=== PATIENT | female | born 1995 | race Caucasian/White ===

== ENCOUNTER 2024-08-12 08:47 | Outpatient (CLI) | payer OTHER, SELFPAY ==
--- NOTE | 2024-08-12 09:15 | CRLHL7_ITS ---
For Patients: As a result of the Cures Act, medical imaging exams and procedure reports are released immediately into your electronic medical record. You may view this report before your referring provider. If you have questions, please contact your health care provider. OB ULTRASOUND INDICATION: Dating and viability (IVF). TECHNIQUE: Real time grayscale imaging of the fetus was performed. Transabdominal. CHINO by IVF: 03/09/2025. GA: 10 w, 1 d. Previous US: No. CRL: 3.5 cm. 10 w 3 d. CHINO: 03/07/2025. FHR: 176 BPM. Gestational sac: 3.4 cm. Appears within normal limits. Yolk sac: 4.9 mm. Appears within normal limits. Posterior placenta forming. Right ovary: 2.0 x 0.9 x 1.7 cm. Left ovary: N/V. IMPRESSION: Single living intrauterine measures 10 weeks 3 days with sonographic due date 03/07/2025. Stuart Abraham M.D. Diagnostic Radiologist [email or web address] MARCELLO/bhanu drummond/Dictated by: Stuart Abraham MD @ 08/12/2024 12:57:00 PM (Electronically Signed)
== END 2024-08-12 08:48 | disposition home or self-care (01) ==
LOC: US 08:49
PROVIDERS: Visit Provider Advanced Practice Midwife
DX: O09.811 Supervision of pregnancy resulting from assisted reproductive technology, first trimester (principal); Z3A.10 10 weeks gestation of pregnancy
CPT/HCPCS: 76801

== ENCOUNTER 2024-08-23 22:38 | Emergency (ER) | payer OTHER, SELFPAY ==
--- OUTSIDE RECORDS SUMMARY | 2024-08-23 22:40 | XMS_ITS | Clinical Summary ---
Author Organization [facility] Address [address] [place] [address] Care Team Providers Care Hand Picker Name Role Phone Billie Olivier PAWAN Primary Care Provider Allergies No known active allergies Medications ALBUTEROL INHL Inhale by mouth. Active benzonatate (TESSALON) 200 mg capsuleIndicati ons:Shortness of breath,Chest pain, unspecified type Take 1 Capsule (200 mg) by mouth 3 times daily if needed for Cough. 30 Capsule 2 Active rizatriptan (MAXALT) 10 mg tabletIndicatio ns:Migraine syndrome Take 1 tab at onset of migraine, may repeat X1. Give at minimum 2hrs apart. Max Dose: 30mg per 24hrs. 12 Tablet 3 5 Active sertraline 25 mg tabletIndicatio ns:Depression, recurrent,Anxie ty TAKE ONE TABLET BY MOUTH EVERY MORNING 90 Tablet 5 Active sertraline (ZOLOFT) 25 mg tabletIndicatio ns:Depression, recurrent,Anxie ty Take 1 Tablet (25 mg) by mouth once daily in the morning. 90 Tablet 5 025 Discontinued Active Problems Problem Noted Date Diagnosed Date Migraine syndrome 04/29/2024 Migraine without aura 03/09/2022 Overview (03/09/2022): Created by Conversion Replacement Utility updated for latest IMO load BROOKE (generalized anxiety disorder) 03/11/2017 Unspecified episodic mood disorder 01/06/2008 Attention deficit disorder with hyperactivity(31 4.01) 01/06/2008 Oppositional defiant disorder of childhood or ad olescence 01/06/2008 Anxiety state, unspecified 01/06/2008 Encounters Date Type Department Care Team Description 07/29/[address] [phone] Billie Olivier NP Refill Request (Sertraline) from Last 3 Months Immunizations Immunization Administration Dates Next Due DTaP 10/06/2001,04/24/1997,02/14/1997 ,1996 Dtap Unspecified Formulation 10/06/2001,04/24/18 98,02/14/1997,1996 HIB PRP-OMP (PedvaxHIB) 04/24/1997,02/14/1997, Hepatitis A, Unspecified 07/22/2007,12/04/2006,0 04/24/1997 Hepatitis B (Adult) 04/24/1997,1996 Human Papilloma Virus Vaccine 12/18/2011, 012,07/27/2008 Inactivated Polio Vaccine 06/10/2012,10/06/2001, 02/14/1997,1996 MMR 10/06/2001,10/31/1997 Meningococcal Vaccine (Menactra) 01/08/2015,07/06 Td (Age >=7 Years) 10/27/2018 Tdap 08/24/2020,10/27/2018,07/27/2008 Varicella Vaccine 10/27/2018,12/04/2006 Family History Medical History Relation Name Comments Psychiatric illness Mother depressi on-on Zoloft Relation Name Status Comments Brother 1 Alive m. half Brother 2 Alive p. half Father Alive Mother Alive Sister Alive p. half Social History Tobacco Use Types Packs/Day Years Used Date Smoking Tobacco: Never Alcohol Use Standard Drinks/Week Comments Yes 0 (1 standard drink = 0.6 oz pur e alcohol) Rare PHQ-2 Answer Date Recorded PHQ-2 TOTAL SCORE 2 05/13/2024 Comments No Sex and Gender Information Value Date Recorded Sex Assigned at Not on file Legal Sex Female 6:26 PM TECHNICAL AID Gender Identity Not on file Sexual Orientation Not on file Obstetrics History Last Filed Vital Signs Vital Sign Reading Time Taken Comments Blood Pressure 108/78 04/29/2024 1:10 PM TECHNICAL AID Pulse 64 04/29/2024 1:10 PM TECHNICAL AID Temperature 36.7 C (98 F) 10/16/2022 1:14 PM CDT Respiratory Rate 16 10/16/2022 1:14 PM CDT Oxygen Saturation 98% 10/16/2022 1:14 PM CDT Inhaled Oxygen Concentration - - Weight 89 kg (196 lb 1.6 oz) 04/29/2024 1:10 PM TECHNICAL AID Height 166 cm (5' 5.35) 04/29/2024 1:10 PM TECHNICAL AID Body Mass Index 32.28 04/29/2024 1:10 PM TECHNICAL AID Plan of Treatment Health Maintenance Due Date Last Done Comments Hepatitis B series for 19+ (3 of 3 - 3-dose series) 06/19/1997 04/24/1997, 1996 HIV for age 15-65 10/11/2011 Hepatitis C screening for age 18-79 2014 Pap test for age 21-65 2017 COVID-19 vaccine series ( season) 2023 05/02/2021, 05/02/2021, 09/07/2020, Additional history exists Influenza Vaccine (Season Ended) 2024 BMI (ht and wt on same day) for age 18+ 04/29/2025 04/29/2024 Depression screening for age 12+ 05/13/2025 05/13/2024 Tetanus booster 08/24/2030 08/24/2020, 10/05, 10/27/2018, Additional history exists Tdap Completed 08/24/2020, 10/05, 07/27/2008 Pneumococcal series for age 6-49 Aged Out No longer eligible based on patient's age to complete this topic Insurance [place] [id number] [place] [id number] CLINIC ID #[id number] A/P [address] [address] [place] [address] Care Teams Hand Picker Relationship Specialty Start Date End Date Billie Olivier NP [address] [place] [id number] PCP - General Nurse Practitioner - Family 04/29/24
[2024-08-23 22:42] VITALS: BP 132/81; PULSE 78; RESP 18; TEMP 37.2; O2SAT 98; BMI 31.1
--- NOTE | 2024-08-23 23:07 | ED.GENADULT ---
HPI - General Adult General Chief complaint: Nausea/Vomiting Stated complaint: 12 Weeks , vomiting x 24 hours Time Seen by Provider: 08/23/24 23:01 History of Present Illness HPI narrative: pt here with nausea and vomiting, unable to tolerate po x 24 hours, has had ongoing issues with this and has zofran at home, CHINO 03/09/2025, was prescribed reglan but has not been notified it is ready at pharmacy 28-year-old woman presenting to the emergency department with concern nausea and vomiting. No hematemesis noted. No fever. This has been present through her now at 11-12 weeks. She says Zofran is not working. Was prescribed Reglan but does not have this yet. She is not having any abdominal pain. No unusual discharge. Still with nausea presenting here in the emergency department. Has not received IV treatment for this yet but since it had been 24 hours now where she was really unable to take anything significant in, thought should present to the emergency department last urine output was about 3 hours ago and concentrated. Related Data Home Medications ?Medication ?Instructions ?Recorded ?Confirmed docosahexaenoic acid 200 mg mg PO 08/13/23 08/12/24 capsule ( DHA) cetirizine 10 mg capsule (Zyrtec) 10 mg PO QDAY PRN 08/12/24 08/23/24 ondansetron HCl 4 mg tablet 4 mg PO Q6H 08/12/24 08/23/24 sertraline 25 mg tablet 25 mg PO QDAY 08/12/24 08/23/24 Held on 08/23/24. Instructions: stopped with ondansetron 4 mg disintegrating 4 mg PO Q4H PRN nausea 08/23/24 08/23/24 tablet Previous Rx's ?Medication ?Instructions ?Recorded albuterol sulfate 90 mcg/actuation 2 inh inhalation Q4-6H PRN 08/12/24 aerosol inhaler shortness of breath or wheezing #6.7 grams ondansetron HCl 4 mg tablet 4 mg PO Q8H #60 tabs 08/12/24 pyridoxine (vitamin B6) 25 mg 25 mg PO QID 3 months #180 tabs 08/12/24 tablet metoclopramide HCl 10 mg tablet 10 mg PO Q6H PRN nausea and 08/23/24 vomiting #120 tabs Allergies Allergy/AdvReac Type Severity Reaction Status Date / Time No Known Drug Allergies Allergy Verified 08/12/24 10:34 Review of Systems Status of ROS: Reports: 6 or more systems reviewed and unremarkable except as noted in History and below [facility] Medical History 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 - Other and unspecified doubling of uterus (ICD-10) Surgical History Status post hysteroscopic resection of uterine septum ?Z98.891 - History of uterine scar from previous surgery (ICD-10) History of tonsillectomy and adenoidectomy ?Z90.89 - Acquired absence of other organs (ICD-10) History of hysteroscopy ?Z98.890 - Other specified postprocedural states (ICD-10) Family History Maternal Grandfather Prostate cancer Grandmother Diabetes Brother Congenital spinal malformation Mother Addiction Social History Narrative: SOCIAL Education: some college 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, 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 hire 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 Lives with: partner and her brother Pets: cat and dog Abuse: Denies past Special Diet: Denies Ok with a blood transfusion: yes Culture or religion beliefs: denies RISK FACTORS Exercise Times/wk: walks occasionally Depression/Anxiety: both, hx therapy but not currently d/t cost, on Sertraline BROOKE: 5 PHQ 9: 4 Seat Belt Use: Routinely Smoking: Denies present, stopped vaping with transfer in June, only occasional use before then Alcohol/day: Denies while Caffeine: 1-2 pops a day Drug Use: Denies present THC in the past, last time 6+ months ago Chicken Pox: unsure if immunized MRSA: Denies What is your current living situation?: I presently have a place to live Problems where you live: no known problems In the past 12 months, utilities in danger of being shut off: no In past 12 months, lack of transportation kept you from medical appts, meetings, work, or getting things needed for daily living: no In the past 12 mos, have been you worried that your food would run out before you had money to buy more?: never true In the past 12 mos, the food you bought just didn't last and you didn't have money to buy more?: never true Smoking Status: Former smoker Do you use any of these nicotine containing products: Vaping Products How often do you have a drink containing alcohol: never AUDIT-C Alcohol total score: 0 Non-prescribed substance use: denies use How often does anyone, including family, friends and others, physically hurt you: never How often does anyone, including family, friends and others, insult or talk down to you: never How often does anyone, including family, friends and others, threaten you with harm: never How often does anyone, including family, friends and others, scream or curse at you: never Exam Narrative: Exam Narrative: Pleasant. Of good energy. Breathing easily. Lungs appear to be clear. Heart in regular rate and rhythm. Abdomen is soft and nontender. Extremities are well perfused without edema. Oropharynx is a little less than moist. Const: Vital Signs, click to edit/add: Vital Signs - 24 hr 08/23/24 22:42 Temperature 98.9 F Pulse Rate [Right Pulse Oximeter] 78 Respiratory Rate 18 Blood Pressure [Ri ght Upper Arm] 132/81 Pulse Oximetry 98 Oxygen Delivery Me thod Room Air Documenting provider has reviewed patient's vital signs: yes Course Vital Signs Vital signs: Initial Vital Signs Temperature 98.9 F 08/23/24 22:42 Temperature Source Temporal Artery Scan 08/23/24 22:42 Pulse Rate 78 08/23/24 22:42 Respiratory Rate 18 08/23/24 22:42 Blood Pressure 132/81 08/23/24 22:42 Blood Pressure Mean 98 08/23/24 22:42 Blood Pressure Position Sitting 08/23/24 22:42 Pulse Oximetry 98 08/23/24 22:42 Oxygen Delivery Method Room Air 08/23/24 22:42 Vital Signs Temperature 98.9 F 08/23/24 22:42 Pulse Rate 78 08/23/24 22:42 Respiratory Rate 18 08/23/24 22:42 Blood Pressure 132/81 08/23/24 22:42 Pulse Oximetry 98 08/23/24 22:42 Oxygen Delivery Method Room Air 08/23/24 22:42 Temperature 98.9 F 08/23/24 22:42 Pulse Rate 78 08/23/24 22:42 Respiratory Rate 18 08/23/24 22:42 Blood Pressure 132/81 08/23/24 22:42 Pulse Oximetry 98 08/23/24 22:42 Oxygen Delivery Method Room Air 08/23/24 22:42 Medications Administered Medications: Generic Name Dose Route Start Last Admin Trade Name Freq PRN Reason Stop Dose Admin Sodium Chloride 500 mls @ 1,000 mls/hr 08/24/24 00:42 08/24/24 00:59 0.9 % Sodium Chloride 500 Ml IV 08/24/24 01:11 1,000 mls/hr .Q30M ONE Administration Discontinued Medications Generic Name Dose Route Start Last Admin Trade Name Freq PRN Reason Stop Dose Admin Sodium Chloride 1,000 mls @ 1,000 mls/hr 08/23/24 23:14 08/24/24 00:37 0.9 % Sodium Chloride 1000 Ml IV 08/24/24 00:13 Infused .Q1H ONE Infusion Metoclopramide HCl 10 mg/ 102 mls @ 306 mls/hr 08/23/24 23:14 08/24/24 00:08 Sodium Chloride IVPB 08/23/24 23:15 Infused ONCE ONE Infusion Medical Decision Making MDM Narrative Medical decision making narrative: No red flags here. No abdominal pain. No bleeding. Would treat as vomiting in . Does not meet the definition of hyperemesis at this point. Initiating IV hydration with normal saline. Reglan piggyback. Urinalysis looks concentrated and possibly a contaminant. Would wait to treat pending culture results as otherwise asymptomatic. Is improved. I did take crackers and diluted juice. Able to tolerate this along with some ice chips. Further giving an orange. Will give another 500 mL of normal saline and I would anticipate discharge See patient discharge plan for further discussion Focus on hydration. Light diet over the next 24-36 hours. Diluted juices, soup broth, toast, rice, crackers. Hopefully the Reglan will be more effective for you than the Zofran has been. Would still consider trying Zofran. Could also take 25 mg of doxylamine twice a day (unfortunately is typically sedating) and 50 mg of vitamin B6 (pyridoxine) 3 times daily for control of nausea. Perhaps you have tried this already. Urine culture will be pending here. I think this will be negative; more of a contaminant perhaps. We will call you though if appears to require action. Medical Records Medical records reviewed: Yes I reviewed the patient's medical records Lab Data Lab results reviewed: Yes I reviewed the patient's lab results Labs: Lab Results 08/24/24 Range/Units 00:00 Urine Color Yellow (Yellow) Urine Appearance Cloudy A (Clear) Urine pH 7.5 (5.0-8.5) Ur Specific [place] 1.020 (1.000-1.030) Urine Protein 1+ A (Negative) Urine Glucose (UA) Negative (Negative) Urine Ketones 2+ A (Negative) Urine Blood Negative (Negative) Urine Nitrite Negative (Negative) Urine Bilirubin 1+ A (Negative) Urine Urobilinogen 4.0 A (0.2-1.0) Ur Leukocyte Esterase 2+ A (Negative) Urine RBC 2-5 A (0-2) Urine WBC 10-25 A (0-5) Ur Squamous Epith Cells Moderate A (None-Few) Amorphous Sediment Moderate A (None) Urine Bacteria Moderate A (None) Urine Mucus Few A (None) Discharge Plan Discharge Clinical Impression: Vomiting during Patient Disposition: Home w/ Parent or Adult Condition: Improved Additional Instructions: Focus on hydration. Light diet over the next 24-36 hours. Diluted juices, soup broth, toast, rice, crackers. Hopefully the Reglan will be more effective for you than the Zofran has been. Would still consider trying Zofran. Could also take 25 mg of doxylamine twice a day (unfortunately is typically sedating) and 50 mg of vitamin B6 (pyridoxine) 3 times daily for control of nausea. Perhaps you have tried this already. Urine culture will be pending here. I think this will be negative; more of a contaminant perhaps. We will call you though if appears to require action. Prescriptions: No Action DHA 200 mg capsule PO sertraline 25 mg tablet 25 mg PO QDAY ondansetron HCl 4 mg tablet 4 mg PO Q6H Zyrtec 10 mg capsule 10 mg PO QDAY PRN pyridoxine (vitamin B6) 25 mg tablet 25 mg PO QID 90 Days Qty: 180 1RF ondansetron HCl 4 mg tablet 4 mg PO Q8H Qty: 60 0RF albuterol sulfate 90 mcg/actuation HFA aerosol inhaler 2 inh inhalation Q4-6H PRN (Reason: shortness of breath or wheezing) Qty: 6.7 0RF ondansetron 4 mg tablet,disintegrating 4 mg PO Q4H PRN (Reason: nausea) metoclopramide HCl 10 mg tablet 10 mg PO Q6H PRN (Reason: nausea and vomiting) Qty: 120 3RF Follow Up/Referrals: Provider,Not a Local [Primary Care Provider, Family Practice] Stand Alone Forms: [employer] Info Instructions
[2024-08-23] MEDS: 0.9 % SODIUM CHLORIDE 1000 ml 1,000 ML IV (23:27)
--- OUTSIDE RECORDS SUMMARY | 2024-08-23 23:30 | XMS_ITS | Clinical Summary ---
Author Organization [facility] [employer] Address [address] [place] [id number] Care Team Providers Care Retail Sales Representative Name Role Phone Billie Olivier PAWAN Primary [...] Type Department Care Team Description 07/29/[address] [phone] Billie Olivier NP Refill Request (Sertraline) from [...] on file Legal Sex Female 6:26 PM EXPERIENCE DESIGNER Gender Identity Not on file Sexual Orientation Not on file Obstetrics History Last Filed Vital Signs Vital Sign Reading Time Taken Comments Blood Pressure 108/78 04/29/2024 1:10 PM EXPERIENCE DESIGNER Pulse 64 04/29/2024 1:10 PM EXPERIENCE DESIGNER Temperature 36.7 C (98 F) 10/16/2022 1:14 PM CDT Respiratory Rate 16 10/16/2022 1:14 PM CDT Oxygen Saturation 98% 10/16/2022 1:14 PM CDT Inhaled Oxygen Concentration - - Weight 89 kg (196 lb 1.6 oz) 04/29/2024 1:10 PM EXPERIENCE DESIGNER Height 166 cm (5' 5.35) 04/29/2024 1:10 PM EXPERIENCE DESIGNER Body Mass Index 32.28 04/29/2024 1:10 PM EXPERIENCE DESIGNER Plan of Treatment Health Maintenance Due Date [...] HP [place] [id number] [place] [id number] CLINIC ID #[id number] A/P [address] [address] [place] [address] Care Teams Retail Sales Representative Relationship Specialty Start Date End Date Billie Olivier NP [address] [place] [id number] PCP - General Nurse Practitioner - Family 04/29/24
[2024-08-23] MEDS: METOCLOPRAMIDE HCL 10 MG in 0.9 % SODIUM CHLORIDE 100 ml 100 ML 306 MG IVPB (23:47)
[2024-08-24 00:10] LABS: Appearance Urine Cloudy (Clear); Bilirubin Urine 1+ (Negative); Blood Urine Negative (Negative); Color Urine Yellow (Yellow); Glucose Urine Negative (Negative); Ketones Urine 2+ (Negative); Leukocyte Esterase Urine 2+ (Negative); Nitrite Urine Negative (Negative); Protein Urine 1+ (Negative); pH Urine 7.5 (5.0-8.5)
[2024-08-24 00:23] LABS: Amorphous Sediment Urine Moderate; Bacteria Urine Moderate; Mucus Urine Few; Squamous Epithelial Cell Urine Moderate (None-Few)
[2024-08-24] MEDS: 0.9 % SODIUM CHLORIDE 500 ML 500 ML 1000 ML IV (00:59)
== END 2024-08-24 01:53 | disposition home or self-care (01) ==
PROVIDERS: Emergency Provider Family Medicine
DX: O21.9 Vomiting of pregnancy, unspecified (principal); Z3A.12 12 weeks gestation of pregnancy
CPT/HCPCS: 81001; 87086; 96365; 99284; J2765; J7030

== ENCOUNTER 2024-09-02 12:03 | Outpatient (CLI) | payer OTHER, SELFPAY | END 2024-09-02 12:04 | disposition home or self-care (01) | LOC: NFLDREF 09-07 00:22 | PROVIDERS: Visit Provider Advanced Practice Midwife | DX: Z34.01 Encounter for supervision of normal first pregnancy, first trimester (principal); Z67.40 Type O blood, Rh positive | CPT/HCPCS: 83020; 83021; 85660; 86592; 86703; 86704; 86706; 86762; 86787; 86803; 86850; 86900; 86901; 87340 ==

== ENCOUNTER 2024-09-15 15:16 | Emergency (ER) | payer OTHER, SELFPAY ==
--- OUTSIDE RECORDS SUMMARY | 2024-09-15 15:18 | XMS_ITS | Clinical Summary ---
Author Organization [facility] Address [address] [place] [id number] Care Team Providers Care Insurance Case Manager Name Role Phone Billie Olivier PAWAN Primary Care Provider Allergies No known active allergies Medications ALBUTEROL INHL Inhale by mouth. Active benzonatate (TESSALON) 200 mg capsuleIndicatio ns:Shortness of breath,Chest pain, unspecified type Take 1 Capsule (200 mg) by mouth 3 times daily if needed for Cough. 30 Capsule 03/09/2022 Active rizatriptan (MAXALT) 10 mg tabletIndication s:Migraine syndrome Take 1 tab at onset of migraine, may repeat X1. Give at minimum 2hrs apart. Max Dose: 30mg per 24hrs. 12 Tablet 3 04/29/2024 Active sertraline 25 mg tabletIndication s:Depression, recurrent,Anxiet y TAKE ONE TABLET BY MOUTH EVERY MORNING 90 Tablet 07/30/2024 Active Active Problems Problem Noted Date Diagnosed Date [...] Type Department Care Team Description 07/29/2024 [address]ill [place] [id number] [facility] [place] [address] Billie Olivier NP Refill Request (Sertraline) from [...] on file Legal Sex Female 6:26 PM LEARNING TECHNOLOGIES SPECIALIST Gender Identity Not on file Sexual Orientation Not on file Obstetrics History Last Filed Vital Signs Vital Sign Reading Time Taken Comments Blood Pressure 108/78 04/29/2024 1:10 PM LEARNING TECHNOLOGIES SPECIALIST Pulse 64 04/29/2024 1:10 PM LEARNING TECHNOLOGIES SPECIALIST Temperature 36.7 C (98 F) 10/16/2022 1:14 PM CDT Respiratory Rate 16 10/16/2022 1:14 PM CDT Oxygen Saturation 98% 10/16/2022 1:14 PM CDT Inhaled Oxygen Concentration - - Weight 89 kg (196 lb 1.6 oz) 04/29/2024 1:10 PM LEARNING TECHNOLOGIES SPECIALIST Height 166 cm (5' 5.35) 04/29/2024 1:10 PM LEARNING TECHNOLOGIES SPECIALIST Body Mass Index 32.28 04/29/2024 1:10 PM LEARNING TECHNOLOGIES SPECIALIST Plan of Treatment Health Maintenance Due Date [...] 04/29/2024 Depression screening for age 12+ 05/13/2025 05/13/2024, 05/05/2024, 04/29/2024 Tetanus booster 08/24/2030 08/24/2020, 10/05, 10/27/2018, Additional history exists Tdap Completed 08/24/2020, 10/05, 07/27/2008 Pneumococcal series for age 6-49 Aged Out No longer eligible based on patient's age to complete this topic Insurance [address] [id number] [place] [address] [facility] [place] [address] HP CLINIC ID #[id number] A/P [address] [address] [place] [address] Care Teams Insurance Case Manager Relationship Specialty Start Date End Date Billie Olivier NP [address] [place] [id number] PCP - General Nurse Practitioner - Family 04/29/24
[2024-09-15 15:34] VITALS: BP 136/86; PULSE 88; RESP 16; TEMP 36.1; O2SAT 98; BMI 31.0
--- NOTE | 2024-09-15 16:18 | ED.SOB ---
HPI - SOB/Dyspnea General Time Seen by Provider: 16:18 Date Seen: 09/15/24 Chief Complaint: Shortness of Breath/Dyspnea Stated Complaint: SOB, 15 wks Time Seen by Provider: 09/15/24 15:19 Source: patient and RN notes reviewed Mode of arrival: ambulatory Limitations: no limitations History of Present Illness HPI Narrative: This 28-year-old female is coming into the ER with episodes of shortness of breath. She notes that she has been having shortness of breath with activities just like full in close. She suddenly felt today that she could not catch her breath and that her heart was racing. She states she sat down in the feeling went away pretty quickly but soon as she stood up she was feeling that way again. This is happened to her before today. She does have asthma but has not been outside in the poor air quality. She has not been sick with anything. She notes no swelling in her legs. She notes no vaginal leakage or bleeding, no cramping. At the time of triage patient was having no shortness of breath, no palpitations, no pain complaints. In review of her records, this is result from in-vitro fertilization. She did have some mild hyperemesis gravidarum initially. She is noted to have the underlying asthma. Her RPR is nonreactive, negative hepatitis B surface antigen and antibody, negative hepatitis-B core, negative hepatitis C antibody, negative HIV. Positive antibodies to rubella and VZV. Related Data Home Medications ?Medication ?Instructions ?Recorded ?Confirmed cetirizine 10 mg capsule (Zyrtec) 10 mg PO QDAY PRN 08/12/24 09/15/24 ondansetron 4 mg disintegrating 4 mg PO Q4H PRN nausea 08/23/24 09/15/24 tablet metoclopramide HCl 10 mg tablet 10 mg PO Q6H PRN nausea/vomiting 09/15/24 09/15/24 sertraline 25 mg tablet 25 mg PO QAM 09/15/24 09/15/24 Previous Rx's ?Medication ?Instructions ?Recorded albuterol sulfate 90 mcg/actuation 2 inh inhalation Q4-6H PRN 08/12/24 aerosol inhaler shortness of breath or wheezing #6.7 grams ondansetron HCl 4 mg tablet 4 mg PO Q8H #60 tabs 05/09/25 ondansetron HCl 4 mg tablet 4 mg PO Q6H #30 tabs 08/26/24 Allergies Allergy/AdvReac Type Severity Reaction Status Date / Time No Known Drug Allergies Allergy Verified 09/15/24 15:33 Review of Systems Status of ROS: Reports: 6 or more systems reviewed and unremarkable except as noted in History and below [facility] Medical History 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 - Other and unspecified doubling of uterus (ICD-10) Surgical History Status post hysteroscopic resection of uterine septum ?Z98.891 - History of uterine scar from previous surgery (ICD-10) History of tonsillectomy and adenoidectomy ?Z90.89 - Acquired absence of other organs (ICD-10) History of hysteroscopy ?Z98.890 - Other specified postprocedural states (ICD-10) Family History Maternal Grandfather Prostate cancer Grandmother Diabetes Brother Congenital spinal malformation Mother Addiction Social History Narrative: SOCIAL Education: some college 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, plans to start at half-way when they hire 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 Lives with: partner and her brother Pets: cat and dog Abuse: Denies past Special Diet: Denies Ok with a blood transfusion: yes Culture or advent beliefs: denies RISK FACTORS Exercise Times/wk: walks occasionally Depression/Anxiety: both, hx therapy but not currently d/t cost, on Sertraline BROOKE: 5 PHQ 9: 4 Seat Belt Use: Routinely Smoking: Denies present, stopped vaping with transfer in June, only occasional use before then Alcohol/day: Denies while Caffeine: 1-2 pops a day Drug Use: Denies present THC in the past, last time 6+ months ago Chicken Pox: unsure if immunized MRSA: Denies What is your current living situation?: I presently have a place to live Problems where you live: no known problems In the past 12 months, utilities in danger of being shut off: no In past 12 months, lack of transportation kept you from medical appts, meetings, work, or getting things needed for daily living: no In the past 12 mos, have been you worried that your food would run out before you had money to buy more?: never true In the past 12 mos, the food you bought just didn't last and you didn't have money to buy more?: never true Smoking Status: Former smoker Do you use any of these nicotine containing products: Vaping Products How often do you have a drink containing alcohol: never AUDIT-C Alcohol total score: 0 Non-prescribed substance use: denies use How often does anyone, including family, friends and others, physically hurt you: never How often does anyone, including family, friends and others, insult or talk down to you: never How often does anyone, including family, friends and others, threaten you with harm: never How often does anyone, including family, friends and others, scream or curse at you: never Exam Const: Vital Signs, click to edit/add: Vital Signs - 24 hr 09/15/24 15:34 09/15/24 16:25 09/15/24 17:42 Temperature 97.0 F L 97.1 F L Pulse Rate [Pulse Oximeter] 88 84 Respiratory Rate 16 18 Blood Pressure [Ri ght Upper Arm] 136/86 130/78 Pulse Oximetry 98 97 100 Oxygen Delivery Me thod Room Air Room Air Pancho is a 28-year-old female that is alert, interactive, no apparent distress. It will speak in complete sentences. Pupils equal round, sclera clear, conjugate gaze. Symmetrical facial function. Speech is normal, no hoarseness. Neck supple, no jugular venous distension. Lungs are clear, good air entry, no wheezing or crackles, tachypnea, no accessory muscle use, no prolonged expiratory phase. CV regular rate and rhythm, no murmur, normal S1-S2, no S3-S4. She has no lower extremity edema. Nursing staff did ambulate her with pulse oximetry, pulse was 110, O2 sats were 91-94% and patient was asymptomatic. I would consider this normal in a patient at 15 weeks. Documenting provider has reviewed patient's vital signs: yes Course Course ED Course: Will obtain EKG, monitor patient here and get appropriate labs. Will discuss PE imaging with CT further with the certified scrub tech, make sure that they are in agreement with imaging. Consider pulmonary emboli, atypical presentation of lung infection, possible cardiac issues (early to have cardiomyopathy). She certainly seems quite stable on initial presentation. Reevaluation(s) Time of Reevaluation #1: 18:23 Reevaluation #1: [place] done patient done, heart rate 157-160. Abdomen is soft, nontender. Reviewed plan for ZIO patch placement. Still awaiting chest CT. If chest CT does come back normal, will discharge to home for further outpatient workup and follow-up. She has been stable here without any hemodynamic changes. Obviously if there is abnormalities on the chest CT, will intervene accordingly. Consultations Consultation #1: Have reviewed case with OB on-call Dr. Martinez, she agrees with proceeding chest CT PE protocol, probable discharge with ZIO patch. Patient was updated regarding this conversation, agrees to chest CT PE protocol. Time: 16:55 Vital Signs Vital signs: Initial Vital Signs Temperature 97.0 F L 09/15/24 15:34 Temperature Source Temporal Artery Scan 09/15/24 15:34 Pulse Rate 88 09/15/24 15:34 Respiratory Rate 16 09/15/24 15:34 Blood Pressure 136/86 09/15/24 15:34 Blood Pressure Mean 102 09/15/24 15:34 Pulse Oximetry 98 09/15/24 15:34 Oxygen Delivery Method Room Air 09/15/24 15:34 Vital Signs Temperature 97.0 F L 09/15/24 15:34 Pulse Rate 88 09/15/24 15:34 Respiratory Rate 16 09/15/24 15:34 Blood Pressure 136/86 09/15/24 15:34 Pulse Oximetry 98 09/15/24 15:34 Oxygen Delivery Method Room Air 09/15/24 15:34 Temperature 97.1 F L 09/15/24 17:42 Pulse Rate 84 09/15/24 17:42 Respiratory Rate 18 09/15/24 17:42 Blood Pressure 130/78 09/15/24 17:42 Pulse Oximetry 100 09/15/24 17:42 Oxygen Delivery Method Room Air 09/15/24 17:42 MDM - SOB/Dyspnea Lab Data Attestation: I reviewed the patient's lab results. Labs: Lab Results 09/15/24 Range/Units 16:48 WBC 12.04 H (4.50-11.00) K/uL RBC 4.12 (4.00-5.20) m/uL Hgb 12.2 (12.0-16.0) gm/dL Hct 36.3 (33.0-51.0) % MCV 88 (80-100) fL MCH 30 (26-34) pg MCHC 34 (32-36) gm/dL RDW Coeff of Rolando 12.9 (11.5-15.5) % Plt Count 337 (140-440) K/uL Neut % (Auto) 76.9 H (42.0-72.0) % Lymph % (Auto) 15.4 L (20-44) % [place] % (Auto) 5.9 (0.0-11.0) % Eos % (Auto) 0.3 (0.0-7.0) % Baso % (Auto) 0.2 (0.0-3.0) % Neut # (Auto) 9.30 H (1.7-7.0) K/uL Lymph # (Auto) 1.90 (0.90-2.90) K/uL [place] # (Auto) 0.70 (0.00-0.90) K/UL Eos # (Auto) 0.00 (0.00-0.50) K/uL Baso # (Auto) 0.00 (0.00-0.30) K/uL Abs Immat Gran (auto) 0.20 (0.00-0.30) K/uL Imm/Tot Granulo (auto) 1.3 % D-Dimer Quant (PE/DVT) 0.32 (0.00-0.50) ug/ml Sodium 133 L (135-149) mmol/L Potassium 4.2 (3.6-5.1) mmol/L Chloride 103 (96-114) mmol/L Carbon Dioxide 22 (20-32) mmol/L Anion Gap 8 (7-15) mEq/L BUN 9 (5-24) mg/dL Creatinine 0.6 (0.5-1.5) mg/dL Estimated Creat Clear 126.73 Estimated GFR 126 ml/min Glucose 65 (60-115) mg/dL Calcium 9.7 (8.4-10.6) mg/dL Total Bilirubin 0.5 (0.1-1.5) mg/dL AST 30 (12-35) U/L ALT 30 (4-35) U/L Alkaline Phosphatase 71 (40-150) U/L Troponin I < 0.01 (0.01-0.04) ng/mL NT-Pro-B Natriuret Pep 37 (See Note) pg/mL Total Protein 7.5 (6.0-8.3) g/dL Albumin 4.1 (3.3-5.0) g/dL Imaging Data CT scan - chest: Attestation: I have reviewed the pertinent imaging results. Radiologist's impression: Patient: DEBBIE AMAYA Facility:?[facility] Patient ID:?[id number] Site Patient ID:?[id number]. Site :?[id number] Study:?CT-Chest Angio W/ 95CC ISOVUE-370 PE PROTOCOL-09/15/2024 5:31:50 PM Ordering Physician:?Crystal Bowman Final Report: INDICATION: Shortness of breath. . TECHNIQUE: CT chest pulmonary angiogram acquired with 95 cc of Isovue 370 IV contrast. Sagittal, coronal and maximum intensity projection reformatted images submitted for review. COMPARISON: None. FINDINGS: No evidence of pulmonary embolus. Main pulmonary artery is normal in caliber. Thoracic aorta is normal in caliber. Heart size is within normal limits. No pathologic lymphadenopathy. No pleural or pericardial effusions. Soft tissues of the thoracic wall are unremarkable. No pneumothorax. Central airways are patent. Mild motion artifact with bilateral subsegmental atelectasis. Lungs are otherwise clear. Visualized upper abdomen is unremarkable. No acute or suspicious osseous abnormality. IMPRESSION: No evidence of pulmonary embolus or other acute abnormality in the chest. Dictated by Hugo Gordon MD @ 09/15/2024 6:25:19 PM Please note that all CT scans at this facility use dose modulation, iterative reconstruction, and/or weight-based dosing when appropriate to reduce radiation dose to as low as reasonably achievable. Dictated by: Hugo Gordon MD @ 09/15/2024 18:25:35 (Electronic Signature) ECG Data Attestation: I personally reviewed and interpreted this ECG as follows: (Sinus rhythm with machine calculated short ID interval, rate 71 beats per minute. Voltage criteria for LVH in aVL. No acute ischemic change, no infarct noted.) ECG interpretation date: 09/15/24 ECG interpretation time: 16:53 Discharge Plan Discharge Clinical Impression: Shortness of breath, Racing heart beat Patient Disposition: Home, Self-Care Condition: Stable Instructions: Tachycardia (ED), Shortness of Breath (ED) Additional Instructions: Need to complete the Zio patch cardiac monitoring, return as advised when complete. Need to schedule a follow-up in obstetrics, preferably within 1 week. I know that this does not seem to be your asthma but would certainly avoid being out in the environment when the air quality is poor. If you notice worsening symptoms, have further concerns in the interim, return to the ER for further evaluation. Activity Level: Activity as Tolerated Prescriptions: No Action Zyrtec 10 mg capsule 10 mg PO QDAY PRN ondansetron HCl 4 mg tablet 4 mg PO Q8H Qty: 60 0RF albuterol sulfate 90 mcg/actuation HFA aerosol inhaler 2 inh inhalation Q4-6H PRN (Reason: shortness of breath or wheezing) Qty: 6.7 0RF ondansetron 4 mg tablet,disintegrating 4 mg PO Q4H PRN (Reason: nausea) sertraline 25 mg tablet 25 mg PO QAM metoclopramide HCl 10 mg tablet 10 mg PO Q6H PRN (Reason: nausea/vomiting) ondansetron HCl 4 mg tablet 4 mg PO Q6H Qty: 30 2RF Follow Up/Referrals: Provider,Not a Local [Primary Care Provider, Family Practice] Stand Alone Forms: [employer] Info Instructions
[2024-09-15 16:25] VITALS: O2SAT 97
[2024-09-15 16:58] LABS: Basophils Percent Auto 0.2 % (0.0-3.0); Eosinophils Percent Auto 0.3 % (0.0-7.0); Hematocrit 36.3 % (33.0-51.0); Hemoglobin* 12.2 gm/dL (12.0-16.0); Immature Granulocytes Pct Auto 1.3 %; Lymphocytes Percent Auto 15.4 % (20-44); Mean Corpuscular HGB Conc 34 gm/dL (32-36); Mean Corpuscular Hemoglobin 30 pg (26-34); Mean Corpuscular Volume 88 fL (80-100); Monocytes Percent Auto 5.9 % (0.0-11.0); Neutrophils Percent Auto 76.9 % (42.0-72.0); Platelet Count* 337 K/uL (140-440); RDW Coefficient of Variation % 12.9 % (11.5-15.5); Red Blood Count 4.12 m/uL (4.00-5.20); White Blood Count* 12.04 K/uL (4.50-11.00)
--- NOTE | 2024-09-15 17:00 | CRLHL7_ITS ---
For Patients: As a result of the Century Cures Act, medical imaging exams and procedure reports are released immediately into your electronic medical record. You may view this report before your referring provider. If you have questions, please contact your health care provider. INDICATION: Shortness of breath. . TECHNIQUE: CT chest pulmonary angiogram acquired with 95 cc of Isovue 370 IV contrast. Sagittal, coronal and maximum intensity projection reformatted images submitted for review. COMPARISON: None. FINDINGS: No evidence of pulmonary embolus. Main pulmonary artery is normal in caliber. Thoracic aorta is normal in caliber. Heart size is within normal limits. No pathologic lymphadenopathy. No pleural or pericardial effusions. Soft tissues of the thoracic wall are unremarkable. No pneumothorax. Central airways are patent. Mild motion artifact with bilateral subsegmental atelectasis. Lungs are otherwise clear. Visualized upper abdomen is unremarkable. No acute or suspicious osseous abnormality. IMPRESSION: No evidence of pulmonary embolus or other acute abnormality in the chest. Dictated by Hugo Gordon MD @ 09/15/2024 6:25:19 PM Please note that all CT scans at this facility use dose modulation, iterative reconstruction, and/or weight-based dosing when appropriate to reduce radiation dose to as low as reasonably achievable. Dictated by: Hugo Gordon MD @ 09/15/2024 18:25:35 (Electronically Signed)
[2024-09-15 17:01] LABS: Slide Review Reflex No
[2024-09-15 17:18] LABS: Albumin* 4.1 g/dL (3.3-5.0); Chloride* 103 mmol/L (96-114); Potassium* 4.2 mmol/L (3.6-5.1); Sodium* 133 mmol/L (135-149)
[2024-09-15 17:21] LABS: Alanine Aminotransferase* 30 U/L (4-35); Anion Gap 8 mEq/L (7-15); Aspartate Amino Transferase* 30 U/L (12-35); Blood Urea Nitrogen* 9 mg/dL (5-24); Calcium* 9.7 mg/dL (8.4-10.6); Carbon Dioxide* 22 mmol/L (20-32); Creatinine* 0.6 mg/dL (0.5-1.5); D Dimer Quantitative* 0.32 ug/ml (0.00-0.50); Est. Creatinine Clearance* 126.73; Estimated Glomerular Filt Rate 126 ml/min; Glucose* 65 mg/dL (60-115); Total Protein* 7.5 g/dL (6.0-8.3)
[2024-09-15 17:37] LABS: Alkaline Phosphatase* 71 U/L (40-150); Bilirubin Total* 0.5 mg/dL (0.1-1.5)
[2024-09-15 17:38] LABS: NT Pro B Type NatriureticPept* 37 pg/mL (See Note); Troponin I* < 0.01 ng/mL (0.01-0.04)
[2024-09-15 17:42] VITALS: BP 130/78; PULSE 84; RESP 18; TEMP 36.2; O2SAT 100
== END 2024-09-15 19:04 | disposition home or self-care (01) ==
PROVIDERS: Emergency Provider Family Medicine
DX: R00.2 Palpitations (principal); R06.02 Shortness of breath; Z3A.15 15 weeks gestation of pregnancy
CPT/HCPCS: 36415; 71275; 80053; 83880; 84484; 85025; 85379; 93005; 93246; 94761; 99284; 99285; Q9967

== ENCOUNTER 2024-12-02 18:56 | Outpatient (CLI) | payer OTHER, SELFPAY ==
[2024-12-02 19:11] VITALS: PULSE 99; O2SAT 98
[2024-12-02 19:12] VITALS: BP 129/86; PULSE 90; RESP 18; TEMP 36.8
--- NOTE | 2024-12-02 20:55 | PM.OBLDTN ---
OB - Triage/Final Diagnosis Visit Information Time Seen by Provider: 20:35 Date Seen: 12/02/24 Date of evaluation: 12/02/24 Narrative: The patient is a 29 year old 1 para 0 at 26+1 weeks gestation by known date of embryo transfer for IVF , who presents with decreased movement at home but feeling movement since her arrival in triage. Reason for evaluation: decreased movement Evaluation Laboratory results: None ordered. Vital signs: Vital Signs - 24 hr 12/02/24 19:11 12/02/24 19:12 12/02/24 19:12 Temperature 98.3 F Pulse Rate 90 Respiratory Rate 18 Blood Pressure 129/86 Pulse Oximetry 98 Comments: Vitals per EMR? Psychiatric:? Alert and oriented x3? HEENT:? Normocephalic, atraumatic? Abdomen:? Soft, nontender, and gravid? Extremities:? No edema or erythema? Fetus (Single) Heart Rate Baseline: 145 Telecom Sales Consultant Variability: Moderate (6-25) Monitor Accelerations: Present Monitor Decelerations: Variable (Intermittent variables x 20 sec to karis of 120 when pt lying on her back, which resolved when turned to side lying position. ) Final Diagnosis (1) Decreased movement during : Status: Acute Problem details: Reactive NST and pt reports feeling movement in triage. (2) resulting from in-vitro fertilization: Status: Acute Total Time Spent Total Time Spent: 30 minutes
--- NOTE | 2024-12-02 21:26 | PC.OBNST ---
NST Note NST Note Start: 12/02/24 19:17 Freq: ONCE Status: Active Protocol: Document 12/02/24 19:17 BRM (Rec: 12/02/24 20:46 BRM No Response) NST Note 1 Para (# of births) 0 EDC 03/09/25 Gestational Age In 26 Weeks & 1 Days Weeks & Days Patient Presented Decreased movement with Complaint(s) of Reactive Yes Appropriate for Yes Gestational Age MIGUEL PRESSLEYM Date 12/02/24 Reactive Yes Appropriate for Yes Gestational Age MIGUEL García RN Date 12/02/24 OB NST charge Yes Complete NST Note Yes via Write Note The provider's electronic signature indicates the NST is reactive/appropriate for gestational age. *Note to provider: If an addendum is required, open the patient's chart and click on the note under the Nurse/Allied Health tab.
== END 2024-12-02 21:06 | disposition home or self-care (01) ==
LOC: OB OUT 18:58 → OB 18:58
PROVIDERS: Visit Provider Advanced Practice Midwife
DX: O36.8120 Decreased fetal movements, second trimester, not applicable or unspecified (principal); Z3A.26 26 weeks gestation of pregnancy
CPT/HCPCS: 59025; G0463

== ENCOUNTER 2024-12-15 17:52 | Outpatient (CLI) | payer OTHER, SELFPAY ==
[2024-12-15 18:05] VITALS: PULSE 101; O2SAT 99
[2024-12-15 18:08] VITALS: BP 134/81; PULSE 102; RESP 20; TEMP 36.8
[2024-12-15 18:10] VITALS: PULSE 106; O2SAT 99
--- NOTE | 2024-12-15 18:11 | PM.OBLDTN ---
OB - Triage/Final Diagnosis Visit Information Date Seen: 12/15/24 Date of evaluation: 12/15/24 Narrative: The patient is a 29 year old 1 para 0 at 28 0/7 weeks gestation by LMP, who presents with sharp abdominal pains. See significant issues below. She has a known complete previa. Follow up US scheduled 12/23. Onset of abdominal pain is today around noon. It is constantly sore with worsening of pain and radiation to her back with twisting or bending. No vaginal bleeding. Good movement. She is having regular, soft, daily bowel movements. No dysuria or vaginitis symptoms. No nausea, vomiting or diarrhea. No fever. Specific Issues/Plans G1 P 0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? #Placenta Previa or Low-Lying Placenta. Complete previa at anatomy scan. ? Follow up transvaginal ultrasound at 28-32 weeks (28 weeks per MFM, growth and reassess)? If resolved, no further work up? If complete previa and no accreta? Growth ultrasound at 32 weeks? Schedule Section (C/S) at 36 0/7-37 6/7weeks? If low lying/no accreta? Follow up transvaginal ultrasound at 36 weeks? If resolved, no further workup? If complete Previa? Schedule Section at 36 0/7- 37 6/7 weeks? If Low Lying? If < 10mm from internal cervical os, C/S 36 0/7-37 6/7? If 11-20mm from internal cervical os, ?Vaginal is acceptable with counseling or ?C/S at 39 0/7 weeks gestation? # In Vitro Fertilization (IVF)? 20-week level II detailed US with MFM and a ECHO. echo normal. ? Weekly testing starting at 36 weeks? Growth US at 32 weeks? Delivery recommended: May offer elective induction at >39 0/7 weeks.?? # Hyperemesis. At 12 wks started on Prilosec, Meclizine, and Reglan scheduled with Zofran PRN. IV fluids received. (HER foundation Cocktail: Antihistamine + serotonin antagonist + acid floating derrick operator + promethazine OR metoclopramide + IV vitamins) Consider scheduled IV fluids with vitamins and labs PRN # Asthma. Mostly with seasonal allergies or illness. # Anxiety/depression. On Sertraline. # Septate uterus w/hx resection?- Evaluation Vital signs: Vital Signs - 24 hr 12/15/24 18:05 12/15/24 18:08 12/15/24 18:10 Pulse Rate 102 H Blood Pressure 134/81 Pulse Oximetry 99 99 Comments: General: alert, oriented x3, no acute distress? Mood: appropriate? Lungs:? CTA.? Respirations - breathing unlabored? Heart: Regular rate and rhythm??? Abdomen: soft, gravid uterus, mild tenderness just above pubic bone midline and left lower quadrant lateral to the uterus. Most tenderness over LLQ. Neg rebound tenderness. Neg CVAT? Legs: nontender, no edema? Skin: warm, dry, no rashes? NST: reactive with baseline of 140 bpm, moderate variability, + accels, no decels, no contractions detected by monitor or palpation. VE: deferred Neurologic:? Intact.? Final Diagnosis (1) Abdominal pain during in third trimester: Status: Acute Problem details: 1. Ibuprofen 400mg PO by mouth for pain control-pain decreased from 4/10 to 2/10 post ingestion. 2. To push PO fluids 3. To US for eval stat-normal findings with scan showing placenta >2cm from cervical os, cervix long, thick and closed, no other abnormalities identified 4. Stat UA and routine UC-results indicate undetermined significance, will await culture to determine if treatment is necessary. 5. Discharge home and continue scheduled care. Preacutions reviewed .Mora agrees with plan and has no further questions at this time. (2) Complete placenta previa nos or without hemorrhage, unspecified trimester: Status: Acute (3) resulting from in-vitro fertilization: Status: Acute Total Time Spent Total Time Spent: 48 min
[2024-12-15 18:40] VITALS: PULSE 95; O2SAT 100
--- NOTE | 2024-12-15 18:43 | CRLHL7_ITS ---
For Patients: As a result of the Century Cures Act, medical imaging exams and procedure reports are released immediately into your electronic medical record. You may view this report before your referring provider. If you have questions, please contact your health care provider. INDICATION: Abdominal pain COMPARISON: Obstetric ultrasound on November 04, 2024 TECHNIQUE: Limited obstetric ultrasound, transabdominal and transvaginal approach, utilizing grayscale and color Doppler FINDINGS: Sonographic imaging demonstrates a single living intrauterine gestation. The fetus has a cardiac rate of 176 beats per minute. The fetus has a vertex orientation. The placenta lies along the left wall without evidence of placenta previa. Amniotic fluid volume appears normal with single deepest pocket of 5 centimeters. The cervix is closed and measures 3.4 cm in length. No free fluid. IMPRESSION: 1. Single living intrauterine gestation in vertex position with heart rate at the upper limits of normal measuring 176 beats per minute. 2. Otherwise, the remainder of the examination is unremarkable. Dictated by Omid Vale MD @ 12/15/2024 8:49:09 PM (Electronically Signed)
[2024-12-15 18:55] LABS: Appearance Urine Clear (Clear)
[2024-12-15] MEDS: IBUPROFEN 400 MG TABLET PO (19:01)
--- NOTE | 2024-12-15 21:29 | PC.OBNST ---
NST Note NST Note Start: 12/15/24 17:57 Freq: ONCE Status: Discharge Protocol: Document 12/15/24 21:19 BR (Rec: 12/15/24 21:29 BR [id number]) NST Note 1 Para (# of births) 0 EDC 03/09/25 Gestational Age In 28 Weeks & 0 Days Weeks & Days Patient Presented Pain with Complaint(s) of If Pain, describe abdomen/pelvic pain location Reactive Yes Appropriate for Yes Gestational Age MIGUEL Scott Date 12/15/24 Reactive Yes Appropriate for Yes Gestational Age MIGUEL PRESSLEY Date 12/15/24 OB NST charge Yes Complete NST Note Yes via Write Note The provider's electronic signature indicates the NST is reactive/appropriate for gestational age. *Note to provider: If an addendum is required, open the patient's chart and click on the note under the Nurse/Allied Health tab.
== END 2024-12-15 20:08 | disposition home or self-care (01) ==
LOC: OB OUT 17:53 → OB 17:55
PROVIDERS: Visit Provider Midwife
DX: O26.893 Other specified pregnancy related conditions, third trimester (principal); R10.9 Unspecified abdominal pain; Z3A.28 28 weeks gestation of pregnancy
CPT/HCPCS: 59025; 76815; 76817; 81001; 81003; 87086; 93976; G0463; A9270

== ENCOUNTER 2024-12-23 12:02 | Outpatient (CLI) | payer OTHER, SELFPAY | END 2024-12-23 12:03 | disposition home or self-care (01) | LOC: NFLDREF 12-28 18:22 | PROVIDERS: Visit Provider Advanced Practice Midwife | DX: Z34.93 Encounter for supervision of normal pregnancy, unspecified, third trimester (principal); Z3A.29 29 weeks gestation of pregnancy | CPT/HCPCS: 86592 ==

== ENCOUNTER 2024-12-28 08:24 | Outpatient (CLI) | payer OTHER, SELFPAY | END 2024-12-28 08:25 | disposition home or self-care (01) | LOC: NFLDREF 12-30 14:47 | PROVIDERS: Visit Provider Advanced Practice Midwife | DX: O99.810 Abnormal glucose complicating pregnancy (principal) | CPT/HCPCS: 82951; 82952 ==

== ENCOUNTER 2025-01-19 09:02 | Outpatient (CLI) | payer OTHER, SELFPAY ==
--- NOTE | 2025-01-19 09:15 | CRLHL7_ITS ---
For Patients: As a result of the Century Cures Act, medical imaging exams and procedure reports are released immediately into your electronic medical record. You may view this report before your referring provider. If you have questions, please contact your health care provider. OB ULTRASOUND INDICATION: Growth, IVF. [facility] by [facility]: 03/09/2025. GA: 33 w, 0 d. Single. COMPARISON: [facility] 11/04/2024, 10/17/2024. TECHNIQUE: Real time melendez scale imaging of the fetus was performed. Transabdominal imaging performed. Umbilical artery spectral Doppler evaluation performed. CERVIX: Not visualized. POSITIONING: Vertex. AMNIOTIC FLUID: 3.3 cm SDP (N: greater than 2 x 1 cm). BIOPHYSICAL PROFILE: Gross body movements: 2. tone: 2. Respiratory activity: 2. Amniotic fluid: 2. SDP (N: greater than 2 x 1 cm) Total score: 8. PLACENTA: Technique: Transabdominal. PLACENTA POSITION: Anterior, posterior. DOPPLER: heart rate: 147 bpm. Umbilical artery: 2.5-2.6 S/D. 28-34 w = less than 4.0. BIOMETRY: BPD: 8.2 cm. 32 w, 5 d, 36 percent. HC: 30.0 cm. 33 w, 1 d, 19 percent. AC: 26.5 cm. 30 w, 4 d, 3.3 percent. FL: 6.3 cm. 32 w, 3 d, 23 percent. FL/AC ratio: 23.61 percent. HC/AC ratio: 1.13. EFW: 1802 g. Weight: 4 lbs, 0 oz. age by this US: 32 w, 2 d. CHINO by this US: 03/14/2025. Percentile by CHINO: 9.5 percent. IMPRESSION: 1. Single live intrauterine gestation at 32 weeks 2 days. CHINO 03/14/2025. 2. Estimated weight 1802 grams which lies at the 10th percentile. Abdominal circumferences at the 3rd percentile. 3. Umbilical artery systolic/diastolic ratios range between 2.5 and 2.6. 4. Biophysical profile score 8 of 8. Ana Maria Santiago M.D. Diagnostic/Breast Radiologist [email or web address] TONI/Dictated by: Ana Maria Santiago MD @ 01/22/2025 1:53:00 PM TONI/Dictated by: Ana Maria Santiago MD @ 01/22/2025 1:53:00 PM (Electronically Signed)
== END 2025-01-19 09:03 | disposition home or self-care (01) ==
LOC: US 09:02
PROVIDERS: Visit Provider Advanced Practice Midwife
DX: O09.813 Supervision of pregnancy resulting from assisted reproductive technology, third trimester (principal); Z3A.33 33 weeks gestation of pregnancy
CPT/HCPCS: 76816; 76819; 76820

== ENCOUNTER 2025-01-25 11:23 | Outpatient (CLI) | payer OTHER, SELFPAY ==
[2025-01-25] VITALS (8 sets, daily range): BP systolic 115–130; BP diastolic 76–88; PULSE 65–86; RESP 16; TEMP 37.2; O2SAT 99
[2025-01-25 11:47] LABS: Hematocrit* 34.9 % (33.0-51.0); Hemoglobin* 11.9 gm/dL (12.0-16.0); Mean Corpuscular HGB Conc 34 gm/dL (32-36); Mean Corpuscular Hemoglobin 30 pg (26-34); Mean Corpuscular Volume 89 fL (80-100); Red Blood Count* 3.94 m/uL (4.00-5.20); White Blood Count* 12.55 K/uL (4.50-11.00)
[2025-01-25 12:03] LABS: Slide Review Reflex No
[2025-01-25 12:11] LABS: Alanine Aminotransferase* 30 U/L (4-35); Aspartate Amino Transferase* 29 U/L (12-35); Blood Urea Nitrogen* 11 mg/dL (5-24); Creatinine* 0.8 mg/dL (0.5-1.5); Estimated Glomerular Filt Rate 103 ml/min
[2025-01-25 13:14] LABS: Protein Creatinine Ratio Urine 0.02 (0-0.19)
--- NOTE | 2025-01-25 15:10 | PC.OBNST ---
NST Note NST Note Start: 01/25/25 11:29 Freq: ONCE Status: Active Protocol: Document 01/25/25 15:06 LAW (Rec: 01/25/25 15:09 LAW [id number]) NST Note 1 Para (# of births) 0 EDC 03/09/25 Gestational Age In 33 Weeks & 6 Days Weeks & Days Patient Presented Other with Complaint(s) of Other Complaints Here for BP monitoring and labs. Reactive Yes Appropriate for Yes Gestational Age MIGUEL Vergara RN Date 01/25/25 Reactive Yes Appropriate for Yes Gestational Age MIGUEL Garcia RN Date 01/25/25 OB NST charge Yes Complete NST Note Yes via Write Note The provider's electronic signature indicates the NST is reactive/appropriate for gestational age. *Note to provider: If an addendum is required, open the patient's chart and click on the note under the Nurse/Allied Health tab.
== END 2025-01-25 13:13 | disposition home or self-care (01) ==
LOC: OB OUT 11:24 → OB 11:24
PROVIDERS: Visit Provider Advanced Practice Midwife
DX: O26.893 Other specified pregnancy related conditions, third trimester (principal); R03.0 Elevated blood-pressure reading, without diagnosis of hypertension; Z3A.33 33 weeks gestation of pregnancy
CPT/HCPCS: 36415; 59025; 82565; 82570; 84156; 84450; 84460; 84520; 85027; G0463

== ENCOUNTER 2025-02-03 09:16 | Outpatient (CLI) | payer OTHER, SELFPAY ==
[2025-02-03] VITALS (17 sets, daily range): BP systolic 130–149; BP diastolic 92–103; PULSE 58–76; RESP 16–20; TEMP 36.5; O2SAT 98–99
[2025-02-03 09:42] LABS: Hematocrit* 33.9 % (33.0-51.0); Hemoglobin* 11.3 gm/dL (12.0-16.0); Mean Corpuscular HGB Conc 33 gm/dL (32-36); Mean Corpuscular Hemoglobin 30 pg (26-34); Mean Corpuscular Volume 89 fL (80-100); Red Blood Count* 3.81 m/uL (4.00-5.20); White Blood Count* 9.19 K/uL (4.50-11.00)
[2025-02-03 09:46] LABS: Slide Review Reflex No
[2025-02-03 10:00] LABS: Blood Urea Nitrogen* 12 mg/dL (5-24); Creatinine* 0.7 mg/dL (0.5-1.5); Estimated Glomerular Filt Rate 121 ml/min
[2025-02-03 10:01] LABS: Alanine Aminotransferase* 29 U/L (4-35); Aspartate Amino Transferase* 29 U/L (12-35)
[2025-02-03 10:53] LABS: Protein Creatinine Ratio Urine 0.10 (0-0.19)
--- NOTE | 2025-02-03 11:23 | P.OBLDTN_ITS ---
OB - Triage/Final Diagnosis Visit Information Date of evaluation: 02/03/25 Narrative: The patient is a 29 year old 1 para 0 at 35 1/7 weeks gestation by IVF date, who presents from clinic with elevated BP. She also reports a mild MANZANO this morning. She denies RUQ pain or vision changes. She reports good movement. Specific Issues/Plans G1 P 0Wife: Desire? testing worksheet completed 01/06/25. #GHTN Gestational hypertension Without severe features? Weekly pre-e labs with urine p/c ratio Twice weekly testing starting at time of diagnosis-form completed 02/03 Growth US every 3 weeks beginning at time of diagnosis?-already scheduled Delivery recommended at 37 0/7 weeks?-IOL consent completed- form sent 02/03 #Intrauterine Growth Restriction ? EFW > 3-9% with normal UA doppler. 01/19/25 EFW 9.5%, AC 3.3%. BPP 11/11. anterior placenta ? MFM consult at time of diagnosis (if before 32 weeks)- consult sent 01/19? UA doppler weekly x 2 weeks.? IF stable findings, UA doppler Q2 weeks? NST weekly? Growth US every 3-4 weeks ? Delivery recommended 38-39 weeks? #GDMA1 * Nutrition consult?01/04/25 * Weekly testing starting at 40 weeks? * Growth US every 4 weeks starting at 28 weeks?? * Delivery recommended 39 0/7-40 6/7 weeks? # In Vitro Fertilization (IVF)? 20-week level II detailed US with MFM and a ECHO. echo normal. ? Weekly testing starting at 36 weeks? Growth US at 32 weeks-ordered? Delivery recommended: May offer elective induction at >39 0/7 weeks.? #Low weight gain. Feels she is eating much healthier than prior to especially with GDM. Significantly reduced fast food and soda.? #Septate uterus w/hx resection. #Placenta Previa or Low-Lying Placenta. Complete previa at anatomy scan. ? Follow up transvaginal ultrasound at 28-32 weeks (28 weeks per MFM, growth and reassess)? If resolved, no further work up-?Resolved on 12/15/24 US results ? #Hyperemesis. At 12 wks started on Prilosec, Meclizine, and Reglan scheduled with Zofran PRN. IV fluids received. (HER foundation Cocktail: Antihistamine + serotonin antagonist + acid junk removal specialist + promethazine OR metoclopramide + IV vitamins) Consider scheduled IV fluids with vitamins and labs PRN #Asthma. Mostly with seasonal allergies or illness. #Anxiety/depression. Restarting Sertraline 01/19/25 ? Imaging:? 1st trimester: Single living intrauterine measures 10 weeks 3 days with sonographic due date 03/07/2025?? Anatomy scan: 19w4d. No anomalies, normal growth: EFW 57%, normal HILLARY, cervix long and closed. Complete placenta previa 12/15/24: placenta previa resolved 01/19/25: Single live intrauterine gestation at 32 weeks 2 days. CHINO 03/14/2025. Estimated weight 1802 grams which lies at the 10th percentile. Abdominal circumferences at the 3rd percentile. Umbilical artery systolic/diastolic ratios range between 2.5 and 2.6. Biophysical profile score 8 of 8. ?Assessment: G1 GHTN 35w1d NST reactive Plan:Pre-e labs normal with PCR 0.1. MANZANO is resolving. Pt agreeable to surveillance as indicated the GHTN diagnosis, request form processed, and IOL at 37w, request form processed. Problem list updated. BP cuff given with instruction for BP checks at home three times daily and if feeling off. To call clinic with BPs that hit 150/100 or signs/symptoms for neuro toxicity. F/U with any changes or concerns. They agree with plan and have no further questions at this time. Evaluation Laboratory results: Laboratory Tests 02/03/25 02/03/25 02/03/25 Range/Units 10:17 09:36 09:28 WBC 9.19 (4.50-11.00) K/uL RBC 3.81 L (4.00-5.20) m/uL Hgb 11.3 L (12.0-16.0) gm/dL Hct 33.9 (33.0-51.0) % MCV 89 (80-100) fL MCH 30 (26-34) pg MCHC 33 (32-36) gm/dL Plt Count 307 (140-440) K/uL BUN 12 (5-24) mg/dL Creatinine 0.7 (0.5-1.5) mg/dL Estimated GFR 121 ml/min AST 29 (12-35) U/L ALT 29 (4-35) U/L Urine Creatinine 86.5 mg/dL Protein/Creatinin Ratio 0.10 (0-0.19) Urine Total Protein 9 mg/dL Group B Strep DNA Pending Vital signs: Vital Signs - 24 hr 02/03/25 09:30 02/03/25 09:34 02/03/25 09:35 Temperature 97.7 F Pulse Rate 65 Respiratory Rate 20 Blood Pressure 140/97 H Pulse Oximetry 98 98 02/03/25 09:40 02/03/25 09:45 02/03/25 09:45 Temperature Pulse Rate 62 Respiratory Rate Blood Pressure 133/94 H Pulse Oximetry 99 02/03/25 09:45 02/03/25 09:50 02/03/25 09:55 Temperature Pulse Rate Respiratory Rate Blood Pressure 130/92 H Pulse Oximetry 98 98 02/03/25 09:55 02/03/25 09:55 02/03/25 10:00 Temperature Pulse Rate 71 Respiratory Rate Blood Pressure Pulse Oximetry 99 99 02/03/25 10:17 02/03/25 10:17 02/03/25 10:32 Temperature Pulse Rate 69 Respiratory Rate 18 Blood Pressure 136/96 H 141/96 H Pulse Oximetry 02/03/25 10:32 02/03/25 10:47 02/03/25 10:47 Temperature Pulse Rate 65 65 Respiratory Rate Blood Pressure 135/92 H Pulse Oximetry 02/03/25 11:02 02/03/25 11:02 02/03/25 11:17 Temperature Pulse Rate 73 Respiratory Rate 16 Blood Pressure 135/96 H 144/97 H Pulse Oximetry 02/03/25 11:17 Temperature Pulse Rate 58 L Respiratory Rate Blood Pressure Pulse Oximetry Comments: Mild range elevated in BP. See labs. HRR with no MRGs LS clear bilaterally Reflexes +3/4 on left, +2/4 on right, +1beat clonus bilateral lower extremities Abdomen-Gravid uterus, nontender NST reactive baseline 125bpm, moderate variability, + accels, no decels, uterine irritability is noted.
--- NOTE | 2025-02-03 16:12 | PC.OBNST ---
NST Note NST Note Start: 02/03/25 09:28 Freq: ONCE Status: Active Protocol: Document 02/03/25 09:28 [facility] (Rec: 02/03/25 16:11 [facility] [id number]) NST Note 1 Para (# of births) 0 EDC 03/09/25 Gestational Age In 35 Weeks & 1 Days Weeks & Days High Risk Factors Diabetes - Gestational Diet Controlled Patient Presented Headache with Complaint(s) of Other Complaints Pt present to L&D verbalizing the presence of a headache. No blood pressure issues during the thus far. She states that she does typically get headaches, and this current one feels similar to other headaches when she gets them. She feels that the fire alarms that went off at work for a while last night may have precipitated the headache. She took Tylenol last night with no relief. Reactive Yes Appropriate for Yes Gestational Age MIGUEL Landin RN Date 02/03/25 Reactive Yes Appropriate for Yes Gestational Age MIGUEL Ruiz RN Date 02/03/25 OB NST charge Yes Complete NST Note Yes via Write Note The provider's electronic signature indicates the NST is reactive/appropriate for gestational age. *Note to provider: If an addendum is required, open the patient's chart and click on the note under the Nurse/Allied Health tab.
[2025-02-04 08:13] LABS: Strep B DNA Probe Negative (Negative)
[2025-02-04 08:30] LABS: Strep B Susceptibility Needed? No
== END 2025-02-03 12:20 | disposition home or self-care (01) ==
LOC: OB OUT 09:16 → OB 09:16
PROVIDERS: Visit Provider Midwife
DX: O26.893 Other specified pregnancy related conditions, third trimester (principal); R03.0 Elevated blood-pressure reading, without diagnosis of hypertension; O24.419 Gestational diabetes mellitus in pregnancy, unspecified control; Z3A.35 35 weeks gestation of pregnancy
CPT/HCPCS: 36415; 59025; 82565; 82570; 84156; 84450; 84460; 84520; 85027; 87081; 87653; G0463

== ENCOUNTER 2025-02-04 18:15 | Outpatient (CLI) | payer OTHER, SELFPAY ==
[2025-02-04] VITALS (7 sets, daily range): BP systolic 130–133; BP diastolic 84–85; PULSE 80–88; TEMP 36.8; O2SAT 98–99
--- NOTE | 2025-02-04 19:28 | PC.OBNST ---
NST Note NST Note Start: 02/04/25 18:23 Freq: ONCE Status: Active Protocol: Document 02/04/25 19:12 [facility] (Rec: 02/04/25 19:28 NONDENOMINATIONAL No Response) NST Note 1 Para (# of births) 0 EDC 03/09/25 Gestational Age In 35 Weeks & 2 Days Weeks & Days High Risk Factors High Blood Pressure - Gestational,Diabetes - Gestational Diet Controlled Patient Presented Other with Complaint(s) of Other Complaints elevated blood pressures at home Reactive Yes Appropriate for Yes Gestational Age MIGUEL Mcdaniel Date 02/04/25 Reactive Yes Appropriate for Yes Gestational Age MIGUEL Mcdowell Date 02/04/25 OB NST charge Yes Complete NST Note Yes via Write Note The provider's electronic signature indicates the NST is reactive/appropriate for gestational age. *Note to provider: If an addendum is required, open the patient's chart and click on the note under the Nurse/Allied Health tab.
== END 2025-02-04 19:00 | disposition home or self-care (01) ==
LOC: OB OUT 18:15 → OB 18:15
PROVIDERS: Visit Provider Advanced Practice Midwife
DX: O26.893 Other specified pregnancy related conditions, third trimester (principal); R03.0 Elevated blood-pressure reading, without diagnosis of hypertension; O24.419 Gestational diabetes mellitus in pregnancy, unspecified control; Z3A.35 35 weeks gestation of pregnancy
CPT/HCPCS: 59025; G0463

== ENCOUNTER 2025-02-09 14:45 | Inpatient (IN) | payer OTHER, SELFPAY ==
[2025-02-09] VITALS (48 sets, daily range): BP systolic 127–158; BP diastolic 69–101; PULSE 57–101; RESP 16; TEMP 36.6–37.1; O2SAT 98–100; BMI 30.6
[2025-02-09 10:44] LABS: Hematocrit* 34.5 % (33.0-51.0); Hemoglobin* 11.5 gm/dL (12.0-16.0); Mean Corpuscular HGB Conc 33 gm/dL (32-36); Mean Corpuscular Hemoglobin 30 pg (26-34); Mean Corpuscular Volume 89 fL (80-100); Red Blood Count* 3.89 m/uL (4.00-5.20); White Blood Count* 7.00 K/uL (4.50-11.00)
[2025-02-09 10:49] LABS: Slide Review Reflex No
[2025-02-09 11:01] LABS: Alanine Aminotransferase* 49 U/L (4-35); Aspartate Amino Transferase* 37 U/L (12-35); Blood Urea Nitrogen* 10 mg/dL (5-24); Creatinine* 0.8 mg/dL (0.5-1.5); Estimated Glomerular Filt Rate 103 ml/min
[2025-02-09] MEDS: ACETAMINOPHEN 500 MG TABLET 1000 MG PO (11:12)
[2025-02-09 11:47] LABS: Appearance Urine Cloudy (Clear)
[2025-02-09 11:58] LABS: Protein Creatinine Ratio Urine 0.36 (0-0.19)
[2025-02-09] MEDS: BETAMETHASONE SOD PHOS/ACETATE 6 MG/ML ML 12 MG IM (14:36)
--- NOTE | 2025-02-09 14:41 | PM.OBHPAP1 ---
OB - H&P; HPI Antepartum History of Present Illness Time Seen by Provider: 14:41 Date Seen: 02/09/25 Chief complaint: Maternity Narrative: Mora Farley is a 29 year old female who presented to L&D for evaluation of a persistent MANZANO over the past 2 weeks that is improved but not completely resolved with PO Tylenol. Mora denies visual changes, nausea, vomiting, epigastric pain, or edema. This CNM consulted with Dr Nichols at [facility], where the pt has been following for growth restriction, who recommends at a minimum betamethasone for lung maturity and overnight observation with potential IOL with worsening BPs, lab values, or symptoms. Mora is now admitted for this with new dx today of preeclampsia without severe features. complicated by IUGR, gHTN, GDM A1, hyperemesis, anxiety and depression. Specific Issues/Plans G1 P 0 : Desire? H&P completed by [] on []? GBS complete at 35w #GHTN Gestational hypertension Without severe features? Weekly pre-e labs with urine p/c ratio Twice weekly testing starting at time of diagnosis-form completed 02/03 Growth US every 3 weeks beginning at time of diagnosis?-already scheduled Delivery recommended at 37 0/7 weeks?-IOL consent completed- form sent 02/03 #Intrauterine Growth Restriction ? EFW > 3-9% with normal UA doppler. 01/19/25 EFW 9.5%, AC 3.3%. BPP 11/11. anterior placenta ? [facility] consult at time of diagnosis (if before 32 weeks)- consult sent 01/19? UA doppler weekly x 2 weeks.? IF stable findings, UA doppler Q2 weeks? NST weekly? Growth US every 3-4 weeks ? Delivery recommended 38-39 weeks? #GDMA1 Nutrition consult?01/04/25 Weekly testing starting at 40 weeks? Growth US every 4 weeks starting at 28 weeks?? Delivery recommended 39 0/7-40 6/7 weeks? # In Vitro Fertilization (IVF)? 20-week level II detailed US with MFM and a ECHO. echo normal. ? Weekly testing starting at 36 weeks? Growth US at 32 weeks-ordered? Delivery recommended: May offer elective induction at >39 0/7 weeks.? #Low weight gain. Feels she is eating much healthier than prior to especially with GDM. Significantly reduced fast food and soda.? #Septate uterus w/hx resection. #Placenta Previa or Low-Lying Placenta. Complete previa at anatomy scan. ? Follow up transvaginal ultrasound at 28-32 weeks (28 weeks per MFM, growth and reassess)? If resolved, no further work up-?Resolved on 12/15/24 US results ? #Hyperemesis. At 12 wks started on Prilosec, Meclizine, and Reglan scheduled with Zofran PRN. IV fluids received. (HER [employer] Cocktail: Antihistamine + serotonin antagonist + acid yoga teacher + promethazine OR metoclopramide + IV vitamins) Consider scheduled IV fluids with vitamins and labs PRN #Asthma. Mostly with seasonal allergies or illness. #Anxiety/depression. Restarting Sertraline 01/19/25 ? Imaging:? 1st trimester: Single living intrauterine measures 10 weeks 3 days with sonographic due date 03/07/2025?? Anatomy scan: 19w4d. No anomolies, normal growth: EFW 57%, normal HILLARY, cervix long and closed. Complete placenta previa 12/15/24: placenta previa resolved 01/19/25: Single live intrauterine gestation at 32 weeks 2 days. CHINO 03/14/2025. Estimated weight 1802 grams which lies at the 10th percentile. Abdominal circumferences at the 3rd percentile. Umbilical artery systolic/diastolic ratios range between 2.5 and 2.6. Biophysical profile score 8 of 8. ? ?? Tdap:?12/23/24 32wk Mental Health:?01/06/2025 PHQ- 5 BROOKE- 3 34wk hgb:??02/03/25 11.3? COVID: initial series, one booster Flu: 02/07/25 RSV: 02/07/25 History of Present Dating criteria: other (IVF ) care: good care Ultrasounds: normal 1st trimester US, normal mid trimester US and abnormal US findings Abnormal ultrasound findings: growth restriction diagnosed at routine growth US at 32wks on 01/19/25, EFW 9.5%ile, AC 3%. Hx of resection of uterine septum. complications: preeclampsia, hyperemesis, placenta previa (resolved) and gestational diabetes complications comment: IVF Medical complications: cardiovascular Labs Blood type: O (+) positive Rubella: immune RPR/VDLR: nonreactive GBS status: negative HBsAG: negative Review of Systems Status of ROS: Reports: 10 or more systems reviewed and unremarkable except as noted in History and below Neuro: Reports: headache (for 2 weeks, improved by Tylenol but not fully relieved. ) Meds Home Medications and Allergies Home Medications ?Medication ?Instructions ?Recorded ?Confirmed ?Type cetirizine 10 mg capsule (Zyrtec) 10 mg PO QDAY PRN 08/12/24 02/07/25 History metoclopramide HCl 10 mg tablet 10 mg PO Q6H PRN nausea/vomiting 09/15/24 02/07/25 History albuterol sulfate 90 mcg/actuation 2 puff PO Q4-6H PRN for wheezing 09/20/24 02/07/25 Rx aerosol inhaler #8.5 grams aspirin 81 mg chewable tablet 81 mg PO QDAY 09/30/24 02/07/25 History omeprazole 20 mg capsule,delayed 20 mg PO QDAY #120 caps 10/28/24 02/07/25 Rx release ondansetron HCl 4 mg tablet 4 mg PO Q6H #30 tabs 10/28/24 02/07/25 Rx vit no.95-ferrous 1 tab PO DAILY 12/02/24 02/07/25 History fumarate 28 mg-folic acid 800 mcg tablet () Blood Glucose Meter #1 ea 12/28/24 02/07/25 Rx Test Strips #100 ea 12/28/24 02/07/25 Rx lancets #100 ea 12/28/24 02/07/25 Rx sertraline 25 mg tablet 25 mg PO QDAY #90 tabs 01/07/25 02/07/25 Rx Allergies Allergy/AdvReac Type Severity Reaction Status Date / Time No Known Drug Allergies Allergy Verified 02/07/25 09:06 OB - H&P: Exam Physical Exam: Vital signs: Temp Pulse BP Pulse Ox 98.3 F 84 145/101 H 100 02/09/25 10:16 02/09/25 14:32 02/09/25 14:32 02/09/25 11:16 Narrative: Vital signs: as noted below? Total weight gain: see flowsheet? General: alert, oriented x3, no acute distress? Mood: appropriate? Lungs:? CTA.? Respirations - breathing unlabored? Heart: Regular rate and rhythm??? Abdomen: soft, nontender, gravid uterus? Legs: nontender, no edema? Skin: warm, dry, no rashes? Neurologic:? Intact.? OB - Results Labs Labs: Short CBC 02/09/25 Range/Units 10:30 WBC 7.00 (4.50-11.00) K/uL Hgb 11.5 L (12.0-16.0) gm/dL Hct 34.5 (33.0-51.0) % Plt Count 292 (140-440) K/uL BMP 02/09/25 10:30 BUN 10 Creatinine 0.8 Liver Function 02/09/25 Range/Units 10:30 AST 37 H (12-35) U/L ALT 49 H (4-35) U/L Urine 02/09/25 Range/Units 11:35 Urine Color Yellow (Yellow) Urine Appearance Cloudy A (Clear) Urine pH 6.5 (5.0-8.5) Ur Specific [place] 1.025 (1.000-1.030) Urine Protein 2+ A (Negative) Urine Glucose (UA) Negative (Negative) Imaging OB US: Attestation: I have reviewed the pertinent imaging results. Radiologist's impression: US at [facility] on 02/08/2025 showed new dx of elevated umbilical artery dopplers, no evidence of absent or reversed end diastolic flow. OB - A/P Antepartum Assessment and Plan (1) Pre-eclampsia affecting , antepartum: Status: Acute (2) Headache in : Status: Acute (3) IUGR (intrauterine growth restriction) affecting care of mother: Status: Acute (4) GDM, class A1: Status: Acute (5) Supervision of high risk in third trimester: Status: Acute (6) resulting from in-vitro fertilization: Status: Acute (7) UTI (urinary tract infection) in in third trimester: Status: Acute Assessment and Plan: Encourage PO hydration, Rx cephalexin. (8) Abnormal US: Problem details: Elevated umbilical artery dopplers dx 02/08/2025 Status: Acute Plan at 36w0d gestation? GBS negative on 02/03/2025. ? ?complicated by preeclampsia, IUGR, abnormal umbilical artery flow, GDM A1. Elevated BP on admit? Blood type:?O pos Hx of resection of 2cm uterine septum at [facility] on 03/15/2021, reviewed operative note on pt's portal titus, uncomplicated. ?? PLAN:? 1. Antibiotic prophylaxis treatment per protocol? 2. Reviewed risks and benefits of IOL with cytotec. Consider IOL tomorrow morning or earlier as clinically indicated. Pitocin to follow if needed.? 3. Candidate for analgesia of choice. 4. Monitor blood pressures. Repeat labs with IV start now and again at 0600.? 5. Anticipate ? 6. Expectant management at this time.? 7. IV start and monitoring per protocol. 8. Betamethasone 12mg IM given for lung maturity per [facility] recommendation. 9. Discussed prior hx of uterine septum resection with Dr Evans, who states it is typically not a contraindication to labor. Dr Evans will review the operative note as well when available. ? Additional Plan Plan: expectant management
[2025-02-09] MEDS: METOCLOPRAMIDE 10 MG TABLET PO (15:16)
[2025-02-09 16:36] LABS: Hematocrit* 33.6 % (33.0-51.0); Hemoglobin* 11.2 gm/dL (12.0-16.0); Mean Corpuscular HGB Conc 33 gm/dL (32-36); Mean Corpuscular Hemoglobin 30 pg (26-34); Mean Corpuscular Volume 89 fL (80-100); Red Blood Count* 3.77 m/uL (4.00-5.20); White Blood Count* 7.79 K/uL (4.50-11.00)
[2025-02-09 16:41] LABS: Slide Review Reflex No
[2025-02-09 16:57] LABS: Alanine Aminotransferase* 47 U/L (4-35); Aspartate Amino Transferase* 36 U/L (12-35); Blood Urea Nitrogen* 10 mg/dL (5-24); Creatinine* 0.7 mg/dL (0.5-1.5); Estimated Glomerular Filt Rate 121 ml/min
[2025-02-09 17:13] LABS: Protein Creatinine Ratio Urine 0.38 (0-0.19)
[2025-02-09] MEDS: CALCIUM CARBONATE 500 MG CHEW PO (19:27)
[2025-02-09] MEDS: SERTRALINE 50 MG TABLET 25 MG PO (21:15)
[2025-02-09] MEDS: OMEPRAZOLE 20 MG CAPSULE DR PO (21:15)
--- NOTE | 2025-02-09 22:20 | PM.OBPNL ---
Subjective Time Seen by Provider: 22:20 Date Seen: 02/09/25 Narrative: Mora is resting in bed, no new complaints, mild MANZANO. Mother in law at the bedside. Objective Exam: VSS, NAD. Alert and oriented x 3. Vital Signs: Last Vital Signs Temp 98.3 F 02/09/25 22:18 Pulse 57 L 02/09/25 22:18 Resp 16 02/09/25 22:18 BP 131/73 02/09/25 22:18 Pulse Ox 100 02/09/25 17:51 Pelvic Exam Comments: Defer. Exam at 1710 was FT/50%/-3, midpostition, moderate consistency. Contractions Monitor mode: None Assessment Assessment: other (antepartum observation) Status: Category l Heart Rate Baseline: 125 Intake Clinician Variability: Moderate (6-25) Monitor Accelerations: Present Monitor Decelerations: None Labor Progress: Not in labor. Maternal Status: BP overall have been trending down, all WNL since 1800. Labs repeated at 1628 are essentially unchanged from initial preeclamptic panel drawn at 1030. Plan Plan: Continue overnight observation, check BP when awake. Repeat preeclampsia labs at 0600. Reassess plan of care in AM or as clinically indicated. Ordered Vistaril 25mg PRN for sleep.
[2025-02-10] VITALS (38 sets, daily range): BP systolic 128–166; BP diastolic 70–104; PULSE 56–98; RESP 16–17; TEMP 36.6–36.8; O2SAT 81–98
[2025-02-10 06:41] LABS: Hematocrit* 33.5 % (33.0-51.0); Hemoglobin* 11.2 gm/dL (12.0-16.0); Mean Corpuscular HGB Conc 33 gm/dL (32-36); Mean Corpuscular Hemoglobin 30 pg (26-34); Mean Corpuscular Volume 90 fL (80-100); Red Blood Count* 3.74 m/uL (4.00-5.20); Slide Review Reflex No; White Blood Count* 12.41 K/uL (4.50-11.00)
[2025-02-10 06:52] LABS: Alanine Aminotransferase* 46 U/L (4-35); Aspartate Amino Transferase* 32 U/L (12-35); Blood Urea Nitrogen* 11 mg/dL (5-24); Creatinine* 0.7 mg/dL (0.5-1.5); Est. Creatinine Clearance* 107.67; Estimated Glomerular Filt Rate 121 ml/min
--- NOTE | 2025-02-10 08:54 | P.OBPN_ITS ---
Subjective Time Seen by Provider: 09:00 Date Seen: 02/10/25 Narrative: Mora is supported in her room by her partner and her mom. She was able to sleep overnight with help from Vistaril. We reviewed the recommendation for an IOL given the IUGR with increased flows as well as Preeclampsia, IVF, and GDM complicated things further. I did review this case with Dr. Landry to get a second opinion on if this was appropriate given her gestation and she did agree given all of the factors and risks of this case. Overnight her blood pressures have remained elevated but none in severe range. Repeat labs this morning AST/ALT have remained essentially the same. No additional symptoms or concerns. We reviewed an increased risk of baby transfer after delivery given the IUGR and gestation. They verbalize understanding. We reviewed option for IOL given her cervical dilation last night and gestation and primiparous status. Ruled out Cytotec. Reviewed Cervidil and Cook Catheter and risks and benefits of each. Briefly discussed Pitocin but given her dilation, will decline this at this brittany e. All questions answered. Objective Vital Signs: Last Vital Signs Temp 97.9 F 02/10/25 08:40 Pulse 72 02/10/25 08:40 Resp 16 02/10/25 08:40 BP 154/93 H 02/10/25 08:40 Pulse Ox 98 02/10/25 08:40 Contractions Monitor mode: None Contraction pattern: Absent Assessment Assessment: other (IOL initiated ) Status: Category l Heart Rate Baseline: 125 Correction Variability: Moderate (6-25) (periods of minimal with sleep cycles ) Monitor Accelerations: Present Monitor Decelerations: None Plan Plan: at 36w1d gestation? GBS negative ? ?complicated by preeclampsia, IUGR, abnormal umbilical artery flow, GDM A1, IVF , current UTI, hx uterine septum resection in 2020- uncomplicated Elevated, mild range BPs Blood type:?O pos Labor type: induced ?? PLAN:? 1. Reviewed indication for IOL with patient and her family as well as with Dr. Landry. All in agreement on this plan of care given concerns in addition to preeclampsia. 2. Reviewed risks and benefits of IOL with Cervidil vs Cook catheter. Place Cervidil after breakfast. Consider Cook catheter placement after Cervidil course if needed. 3. Candidate for analgesia of choice. 4. Monitor blood pressures. Consider repeat labs as indicated. ? 5. Anticipate ? 6. IV start and monitoring per protocol.
[2025-02-10] MEDS: DINOPROSTONE 10 MG VAGINAL INSERT VAGINAL (09:35)
--- NOTE | 2025-02-10 14:56 | P.OBPN_ITS ---
Subjective Time Seen by Provider: 14:45 Date Seen: 02/10/25 Narrative: Cervidil has been in place for >5hrs. She is feeling cramping in her low abdomen and low back but it coping very well with this at this time. We reviewed again the risks and benefits of a second dose of Betamethasone. Risks of increased blood sugar readings given her GDM with increased risk of needing an insulin drip and lack of data to support at this gestation. Reviewed potential benefits of lung maturation but with unclear data to support. After discussion with her partner they decided to forgo the second dose of Betamethasone at this time. She had questions about the possibility of a transfer for baby as she has concerns about the possibility of separation from her baby. Discussed that it is unclear if this would be accepted as we can care for her here with the known concerns we currently have. Also that insurance coverage is uncertain. Discussed plan of care after Cervidil course likely to check her and decided Cook catheter vs Pitocin titration. All questions and concerns answered at this time. Objective Vital Signs: Last Vital Signs Temp 98.2 F 02/10/25 13:15 Pulse 76 02/10/25 14:23 Resp 16 02/10/25 13:15 BP 134/84 02/10/25 14:23 Pulse Ox 97 02/10/25 13:12 Contractions Monitor mode: None Contraction pattern: Irregular Contraction intensity: Mild (cramping) Assessment Assessment: induction ongoing Status: Category l Heart Rate Baseline: 125 Detention Variability: Moderate (6-25) (minimal with sleep cycles ) Monitor Accelerations: Present Monitor Decelerations: None Plan Plan: at 36w1d gestation? GBS negative ? ?complicated by preeclampsia, IUGR, abnormal umbilical artery flow, GDM A1, IVF , current UTI, hx uterine septum resection in 2020- uncomplicated Elevated, mild range BPs Blood type:?O pos Labor type: induction ?? PLAN:? 1. Reviewed induction plan. Continue with Cervidil until around 2129 this even. Plan for Cook or Pitocin after to be decided at that time. 2. Reviewed second dose of Betamethasone. Declines. See note above for details of discussion. 3. Candidate for analgesia of choice. 4. Monitor blood pressures. Consider repeat labs as indicated. ? 5. Anticipate ? 6. IV start and monitoring per protocol.
[2025-02-10] MEDS: LABETALOL HCL 5 MG/ML inj IVP (18:58)
[2025-02-10] MEDS: LACTATED RINGERS 1000 ML 1,000 ML 75 ML IV (19:13)
[2025-02-10] MEDS: MAGNESIUM IV 4 GM/100 ML PIGGYBACK IVPB (19:14)
--- NOTE | 2025-02-10 19:20 | P.OBCN_ITS ---
OB - CN: HPI Date of Consult Date Seen: 02/10/25 Consult date: 02/10/25 Requesting Physician: Siomara Fan CNM Primary Care Provider: Not a Local Provider Consult Narrative Narrative: Mora is a 29 year old G 1 P 0 at 36w1d GA that was admitted to the Center on 02/09/25 for observation initially for headaches in the setting of hy pertensive disorder . is complicated by growth restriction (EFW 9%ile, AC 3%ile), elevated S/D ratio on 02/08 at [facility], preeclampsia without severe features, GDM A1, IVF, resolved placenta previa, history of uterine septum s/p resection, asthma, anxiety and depression. JOAQUINA Stringer has been primarily managing the patient today. We have discussed her plan of care intermittently, where I recommended proceeding with induction of labor in the setting of complicated growth restriction given her preeclampsia without severe features. Her induction was started at 0930 with cervidil. status has been reassuring throughout the day. Blood pressures were primarily normal to mild range throughout the day. At 1837 patient had her 1st severe range blood pressure, which was sustained on recheck at 1853 - she received 20 mg of IV labetalol where blood pressure was noted to improve. As such, we mutually agree she now meets criteria for preeclampsia with severe f eatures. Magnesium sulfate was started, OB consult requested. I was introduced to Mora by JOAQUINA Stringer. She affirmed the above history. Patient denies headache, vision changes or right upper quadrant pain at this time. She is feeling slightly flushed and starting magnesium. Her glycemic control has been fair throughout the day, where she did need 1u insulin 2 hours after lunch. She is understandably interested in the potential risk of transfer after baby is born, where Pediatrics will be present at delivery. History of Present complications: preeclampsia, hyperemesis, placenta previa (resolved) and gestational diabetes complications comment: IVF History History 1 Elective abortions Para 0 Spontaneous abortions Hx # Term Pregnancies Ectopic pregnancies Hx # Pregnancies Multiple births Number of Living Children 0 Labs Blood type: O (+) positive Rubella: immune RPR/VDLR: nonreactive GBS status: negative HBsAG: negative OB Labs: Lab Assessment Start: 02/09/25 17:40 Freq: ONCE Status: Complete Protocol: PC.OBGBS Activity Type Activity Date Activity User E-sign Co-sign Detail Recorded Client Recorded Date Recorded By Document 02/09/25 17:40 LLB No Response 02/09/25 18:08 LLB 02/09/25 17:40 Lab Assessment GBS Status negative GBS Additional Criteria Less than 37 Weeks In Pre- Term Labor Or PPROM Is Patient Allergic to Penicillin? No Treatment Required OK Are Labs Available Yes Maternal Blood Type O Maternal RH Factor Positive Evaluate Maternal Rubella Immune Status Immune Hepatitis B Surface Antigen Negative Maternal HIV Status Negative Maternal Syphillis (RPR) Status Negative [facility] Medical History (Updated 02/10/25 @ 20:37 by Char Landry MD) Complete placenta previa nos or without hemorrhage, unspecified trimester ?O44.00 - Complete placenta previa NOS or without hemorrhage, unspecified trimester (ICD-10) 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 - Other and unspecified doubling of uterus (ICD-10) Surgical History Status post hysteroscopic resection of uterine septum ?Z98.891 - History of uterine scar from previous surgery (ICD-10) History of tonsillectomy and adenoidectomy ?Z90.89 - Acquired absence of other organs (ICD-10) History of hysteroscopy ?Z98.890 - Other specified postprocedural states (ICD-10) Family History Maternal Grandfather Prostate cancer Grandmother Diabetes Brother Congenital spinal malformation Mother Addiction Social History Narrative: SOCIAL Education: some college 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, plans to start at [employer] when they hire 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 Lives with: partner and her brother Pets: cat and dog Abuse: Denies past Special Diet: Denies Ok with a blood transfusion: yes Culture or mandaeism beliefs: denies RISK FACTORS Exercise Times/wk: walks occasionally Depression/Anxiety: both, hx therapy but not currently d/t cost, on Sertraline BROOKE: 5 PHQ 9: 4 Seat Belt Use: Routinely Smoking: Denies present, stopped vaping with transfer in June, only occasional use before then Alcohol/day: Denies while Caffeine: 1-2 pops a day Drug Use: Denies present THC in the past, last time 6+ months ago Chicken Pox: unsure if immunized MRSA: Denies What is your current living situation?: I presently have a place to live Problems where you live: no known problems In the past 12 months, utilities in danger of being shut off: no In past 12 months, lack of transportation kept you from medical appts, meetings, work, or getting things needed for daily living: no In the past 12 mos, have been you worried that your food would run out before you had money to buy more?: never true In the past 12 mos, the food you bought just didn't last and you didn't have money to buy more?: never true Smoking Status: Never smoker Do you use any of these nicotine containing products: Vaping Products How often do you have a drink containing alcohol: never AUDIT-C Alcohol total score: 0 Non-prescribed substance use: denies use How often does anyone, including family, friends and others, physically hurt you : never How often does anyone, including family, friends and others, insult or talk down to you: never How often does anyone, including family, friends and others, threaten you with harm: never How often does anyone, including family, friends and others, scream or curse at you: never Meds Home Medications and Allergies Home Medications ?Medication ?Instructions ?Recorded ?Confirmed ?Type metoclopramide HCl 10 mg tablet 10 mg PO Q6H PRN nause a/vomiting 09/15/24 02/09/25 History albuterol sulfate 90 mcg/actuation 2 puff PO Q4-6H PRN for wheezing 09/20/24 02/09/25 Rx aerosol inhaler #8.5 grams aspirin 81 mg chewable tablet 81 mg PO QDAY 09/30/24 1 04/11/24 History omeprazole 20 mg capsule,delayed 20 mg PO QDAY #120 ca ps 10/28/24 02/09/25 Rx release ondansetron HCl 4 mg tablet 4 mg PO Q6H #30 tabs 10/2802/09/25 Rx vit no.95-ferrous 1 tab PO DAILY 12/02/2409/28 History fumarate 28 mg-folic acid 800 mcg tablet () Blood Glucose Meter #1 ea 12/28/24 02/09/25 Rx Test Strips #100 ea 12/28/24 02/09/25 Rx lancets #100 ea 12/28/24 02/09/25 Rx sertraline 25 mg tablet 25 mg PO QDAY #90 tabs 01/0702/09/25 Rx Allergies Allergy/AdvReac Type Severity Reaction Status Date / Time No Known Drug Allergies Allergy Verified 02/09/25 18:38 OB - H&P: Exam Physical Exam: Vital signs: Temp Pulse Resp BP Pulse Ox 98.3 F 64 16 144/88 H 94 02/10/25 16:40 02/10/25 19:16 02/10/25 16:40 02/10/25 19:16 02/10/25 17:39 Narrative: General: Alert and oriented, no acute distress Psych: Appropriate mood and affect heart rate: Category 1. Baseline of 135 beats per minute, moderate variability, accelerations seen, no decelerations. [place]: Contractions about every 2-3 minutes. Cervix was fingertip on last check at 0930. Planning cook catheter as next step in IOL with CNM service. OB - Results Labs Labs: Short CBC 02/10/25 Range/Units 06:20 WBC 12.41 H (4.50-11.00) K/uL Hgb 11.2 L (12.0-16.0) gm/dL Hct 33.5 (33.0-51.0) % Plt Count 295 (140-440) K/uL BMP 02/10/25 06:20 BUN 11 Creatinine 0.7 Liver Function 02/10/25 Range/Units 06:20 AST 32 (12-35) U/L ALT 46 H (4-35) U/L OB - CN: A/P Assessment and Plan (1) Headache in : Status: Acute (2) IUGR (intrauterine growth restriction) affecting care of mother: Status: Acute (3) GDM, class A1: Status: Acute (4) Supervision of high risk in third trimester: Status: Acute (5) resulting from in-vitro fertilization: Status: Acute (6) UTI (urinary tract infection) in in third trimester: Status: Acute (7) Abnormal US: Problem details: Elevated umbilical artery dopplers dx 02/08/2025 Status: Acute (8) Severe preeclampsia: Status: Acute Plan Mora is a 29 year old G 1 P 0 at 36w1d GA that was admitted to the Center on 02/09/25 for observation initially for headaches in the setting of hypertensive disorder . She is now undergoing IOL in the setting of complicated growth restriction (composite EFW 9%ile, AC 3%) and preeclampsia. is otherwise complicated by GDM A1, IVF, resolved placenta previa, history of uterine septum s/p resection, asthma, anxiety and depression. Mora newly meet criteria for preeclampsia with severe features this evening, given sustained severe range blood pressures necessitating treatment. Her blood pressure demonstrated excellent response to labetolol 20mg IV x1, now in the normal range. Magnesium sulfate has been started for seizure prophylaxis. Recommend repeat preeclampsia labs. Patient is asymptomatic at present - no headaches, vision changes or right upper quadrant pain. Induction of labor is ongoing with Cervidil, due to be removed soon with plan to continue ripening with Cook catheter and low-dose Pitocin overnight. #PreE with SF: # growth restriction: EFW by US on 01/19 was 1802g at 9.5%ile, AC 3.3% - OB consultation was completed. After discussion, Siomara KUNZ is comfortable continuing to manage Mora's labor. This is Mora's preference as well. Plan to remove Cervidil shortly and repeat exam, where likely next step will include cook catheter and low dose pitocin overnight. - Magnesium sulfate ongoing (s/p 4g bolus) at 2g/hour until 24 hours . - Repeat preE labs now, then trend Q6H while on magnesium sulfate. - Normotensive s/p IV labetolol. Plan to diligently monitor BP and treat sustained SRBP as needed. Consider long acting antihypertensive regimen pending her BP course overnight. - Peditatrics to attend delivery in the setting of preE with SF, prematurity and FGR - BT O+, GBS negative #GDMA1: - s/p BMZ #1 on 02/08 at 1430. 2nd dose was withheld given GDMA1 and hyperglycemia this morning. - Glycemic control throughout the day has been fair. She did need 1u insulin 2 hours after lunch. - Continue BG monitoring and SSI per protocol CNM service to continue as primary managing service. If at any time they feel comfortable, Ob is available for consultation or to assume care fully. Adamaris Alonzo CNM and Soankit Evans MD to assume care on 02/11 at 0700.
[2025-02-10] MEDS: MAGNESIUM Infusion 40 GM/1,000 ML IV.SOLN IVPB (19:51)
[2025-02-10] MEDS: SERTRALINE 50 MG TABLET 25 MG PO (21:06)
[2025-02-10] MEDS: OMEPRAZOLE 20 MG CAPSULE DR PO (21:06)
[2025-02-10 21:13] LABS: Hematocrit* 33.4 % (33.0-51.0); Hemoglobin* 11.0 gm/dL (12.0-16.0); Mean Corpuscular HGB Conc 33 gm/dL (32-36); Mean Corpuscular Hemoglobin 30 pg (26-34); Mean Corpuscular Volume 90 fL (80-100); Red Blood Count* 3.70 m/uL (4.00-5.20); White Blood Count* 13.14 K/uL (4.50-11.00)
[2025-02-10 21:18] LABS: Slide Review Reflex No
--- NOTE | 2025-02-10 21:43 | PM.OBPNL ---
Subjective Date Seen: 02/10/25 Narrative: Mora has had Cervidil in place since around 0930 this morning. She has felt cramping in her lower abdomen and back since after noon. This evening she ended up with severe range blood pressures. She was given a dose of labetalol and was started on Magnesium infusion. Dr. Landry was notified and is agreeable to shared care in this case with the CNM team managing her labor and the OB team managing blood pressure concerns. Mora was notified of this and was very relieved that the CNM team could continue to participate in her care at this time. She is aware that if conditions change that care may be assumed by the OB team solely. Will continue to keep open lines of communication with the OB team and if any participant in her care becomes uncomfortable with the care division it will be reevaluated. See Dr. Daley note for details about preeclampsia management. We then discussed a plan for continuing her induction. The Cervidil was removed around 2129 and she was found to be 1cm/50%/-2 with very soft tissues. We discussed continuing with a Cook catheter as perviously discussed vs Pitocin titration. She is agreeable to the cook catheter. Placed with some difficultly due to the soft tissues and minimal dilation. She tolerated fair and is feeling cramping from the placement. There is currently 30ml in each balloon. Will plan to inflate each to 60ml in total but we are waiting to fully inflate to help her tolerate better. Will attempt to inflate me in 20-30 minutes. Plan to start low dose Pitocin 2 hours after the cook is fully inflated. Objective Vital Signs: Last Vital Signs Temp 98.3 F 02/10/25 16:40 Pulse 74 02/10/25 20:55 Resp 16 02/10/25 16:40 BP 135/76 02/10/25 20:55 Pulse Ox 94 02/10/25 17:39 Pelvic Exam Dilation (cm): 1 Effacement (%): 50 Station: -2 Contractions Monitor mode: External Contraction Frequency: uterine irritability Contraction pattern: Irregular Contraction intensity: Mild (cramping) Assessment Assessment: induction ongoing Station: -2 Status: Category l Heart Rate Baseline: 125 D[address] Glazier Variability: Moderate (6-25) Monitor Accelerations: Present Monitor Decelerations: None Plan Plan: at 36w1d gestation? GBS negative ? ?complicated by preeclampsia, IUGR, abnormal umbilical artery flow, GDM A1, IVF , current UTI, hx uterine septum resection in 2020-uncomplicated, anxiety/depression on sertraline Elevated, mild range BPs Blood type:?O pos Labor type: induction ?? PLAN:? 1. Cook catheter placed. Plan to inflate each balloon to 60mL. Start low dose Pitocin 2 hours after fully inflated. 2. Candidate for analgesia of choice. 3. Encouraged therapeutic sleep overnight with Morphine/Vistaril. 4. Dr. Landry consulted for preeclampsia with severe features on magnesium. Agreed to shared care at this time but will consider transferring care fully if the CNM or OB team feel it would be more appropriate. ? 5. Anticipate ? 6. Second IV started per policy 7. Continuious monitoring per policy.
[2025-02-10 21:59] LABS: Alanine Aminotransferase* 60 U/L (4-35); Aspartate Amino Transferase* 48 U/L (12-35); Creatinine* 0.8 mg/dL (0.5-1.5); Est. Creatinine Clearance* 94.21; Estimated Glomerular Filt Rate 103 ml/min
[2025-02-10] MEDS: ACETAMINOPHEN 500 MG TABLET 1000 MG PO (22:47)
[2025-02-10] MEDS: ONDANSETRON 2 MG/ML inj 4 MG IV (23:21)
[2025-02-11] VITALS (43 sets, daily range): BP systolic 79–157; BP diastolic 49–95; PULSE 62–94; RESP 16; TEMP 36.3–36.8; O2SAT 94–100
[2025-02-11] MEDS: OXYTOCIN 30 unit/500 ML in NS 30 UNIT/500 ML BAG IVPB (01:49)
[2025-02-11 03:41] LABS: Hematocrit* 31.8 % (33.0-51.0); Hemoglobin* 10.5 gm/dL (12.0-16.0); Mean Corpuscular HGB Conc 33 gm/dL (32-36); Mean Corpuscular Hemoglobin 30 pg (26-34); Mean Corpuscular Volume 90 fL (80-100); Red Blood Count* 3.53 m/uL (4.00-5.20); Slide Review Reflex No; White Blood Count* 15.45 K/uL (4.50-11.00)
[2025-02-11 03:56] LABS: Alanine Aminotransferase* 68 U/L (4-35); Aspartate Amino Transferase* 51 U/L (12-35); Blood Urea Nitrogen* 13 mg/dL (5-24); Creatinine* 0.8 mg/dL (0.5-1.5); Est. Creatinine Clearance* 94.21; Estimated Glomerular Filt Rate 103 ml/min
[2025-02-11 05:26] LABS: Amnisure Rom* POSITIVE
--- NOTE | 2025-02-11 06:53 | PM.OBPNL ---
Subjective Date Seen: 02/11/25 Narrative: Pancho experienced SROM with the cook catheter in pace at 0500 with clear fluid. The cook was removed after SROM was confirmed with AmniSure. She has not slept overnight due to pain and disruptions. She was 3cm/60%/-2 and posterior on maternal right per SVE. She continues to leak clear fluid. Will continue with Pitocin titration. She is feeling contractions in her abdomen and feels them as all over tightening, states they feel different than the cramping she had been experiencing. Encouraged position changes and ambulation to encourage labor if unable to rest. Can consider epidural when she is ready. Blood pressures continues to be managed by the OB team. Objective Vital Signs: Last Vital Signs Temp 98.3 F 02/10/25 16:40 Pulse 66 02/11/25 06:08 Resp 16 02/10/25 16:40 BP 126/78 02/11/25 06:08 Pulse Ox 94 02/10/25 17:39 Pelvic Exam Dilation (cm): 3 Effacement (%): 60 Station: -2 Contractions Monitor mode: External Contraction Frequency: 5 Contraction pattern: Irregular Contraction intensity: Mild (cramping) Pitocin Rate (mU/min): 4 Assessment Assessment: induction ongoing Station: -2 Amniotic Membrane Status: SROM Status: Category l Heart Rate Baseline: 115 Financial Service Representative Variability: Minimal (3-5) (mostly minimal variability since morphine and Vistaril ) Monitor Accelerations: Present Monitor Decelerations: None Plan Plan: at 36w2d gestation? GBS negative ? ?complicated by preeclampsia, IUGR, abnormal umbilical artery flow, GDM A1, IVF , current UTI, hx uterine septum resection in 2020-uncomplicated, anxiety/depression on sertraline Severe preeclampsia managed by the OB team Blood type:?O pos Labor type: induction, early labor ?? PLAN:? 1. Cook catheter removed after SROM. Continue with Pitocin titration per policy. 2. Candidate for analgesia of choice. 3. Preeclampsia managed but the OB team wiht comnagemtn of labor by the CNM team. Still agreed to shared care at this time but will consider transferring care fully if the CNM or OB team feel it would be more appropriate. ? 5. Anticipate ? 6. Continuious monitoring per policy.
[2025-02-11] MEDS: ACETAMINOPHEN 500 MG TABLET 1000 MG PO ×3 (07:29→22:58)
[2025-02-11] MEDS: LACTATED RINGERS 1000 ML 1,000 ML 75 ML IV ×2 (08:14→22:42)
--- NOTE | 2025-02-11 08:29 | PM.OBCN1 ---
OB - CN: HPI Date of Consult Time Seen by Provider: 08:15 Date Seen: 02/11/25 Patient: [facility] Patient Consult date: 02/11/25 Requesting Physician: Selin David CNM Primary Care Provider: Not a Local Provider Consult Narrative Narrative: The patient is a 29 year old at 36.2 weeks gestation that was admitted to the [facility] on 02/09/25 for induction of labor due to preeclampsia with severe features and growth restriction with elevated dopplers. Her medical history is significant for: Preeclampsia with severe features, growth restriction with elevated Dopplers, GDM A1, IVF , history of septate resection, asthma (mostly was seasonal allergies, otherwise well controlled) She is a patient of the CNM service and OBGYN service was consulted when patient developed severe features. CNM continued to manage labor. Review of labor course this morning: - S/p cook catheter - SROM 0500 - SVE @ 0647: /-2 per RN exam - Pitocin: 6u - Patient having minimal contractions Pitocin was briefly increased to 8u which resulted in Q5-10 minutes contractions. However, late deceleration noted with every contraction. Overnight, NST showed moderate to minimal variability. She is on Magnesium sulfate for seizure ppx. Presented to bedside to discussed patient's clinical and Pitocin was stop. LFTs are also worsening with every lab draw: AST/ALT: 32/46@0615 on 02/10, 48/60@2100 on 02/10, 51/68@0330 on 02/11. Discussed that fetus would not tolerate more frequent contractions and she's still in latent labor. For best maternal and outcomes, I recommend delivery due to intolerance of labor and worsening pre-eclampsia with severe features. Patient is very tearful but is amenable to recommendation. This is not surprising to her as she has been well educated on her risk factors. The patient was consented for section and blood. She is having a delivery for the indication of: intolerance to labor remote from delivery and worsening preeclampsia with severe features. She understands that the four main categories of risk include pain, bleeding, infection, and damage to surrounding structures. Intraoperative pain will be manage with spinal anesthesia or epidural anesthesia. If that those are not effective or not appropriate for the clinical situation, general anesthesia will be administered. Immediately postop, TAP block will be performed. Throughout her recovery course, she will have on PO pain medications such as ibuprofen, Tylenol, and oxycodone. Regarding infection, she understands that we will be delivering appropriate antibiotics, however that the risk of infection following section still is approximately 5-7%. She understands that though the risk is very low that there is always a risk of damage to the bladder, uterus, ovaries, fallopian tubes, bowels, ureters, or even the fetus (0.1-0.3%). She understands that most injuries can be addressed at the time of surgery, however, such an injury may require additional surgeries to fix. She understands that a section carries a risk of bleeding (1-5% risk of hemorrhage), and that while this bleeding can be addressed with multiple medical and surgical modalities (including hysterectomy), that there is the possibility of needing a blood transfusion (0.5-3%). She reports she would accept a blood transfusion if needed. She understands that a section does increase risks for future pregnancies and deliveries including, but not limited to, the risk of uterine rupture or placenta accreta. Reports that she and her only wants 1 child. Lastly, VTE after delivery rate is around 0.1-0.4%. Will decrease this risk with SCD use, early ambulation, and thromboprophylaxis medication if needed. We also reviewed postoperative care, recovery, and restrictions. All questions answered to patient's satisfaction and the best of my abilities. Consent form signed and will proceed with delivery via section. OR and Pediatric team notified. Hgb/plt: 11.0/297 T&S: O+, antibody negative History of Present complications: preeclampsia, hyperemesis, placenta previa (resolved) and gestational diabetes complications comment: IVF History History 1 Elective abortions Para 0 Spontaneous abortions Hx # Term Pregnancies Ectopic pregnancies Hx # Pregnancies Multiple births Number of Living Children 0 Labs Blood type: O (+) positive Rubella: immune RPR/VDLR: nonreactive GBS status: negative HBsAG: negative OB Labs: Lab Assessment Start: 02/09/25 17:40 Freq: ONCE Status: Complete Protocol: PC.OBGBS Activity Type Activity Date Activity User E-sign Co-sign Detail Recorded Client Recorded Date Recorded By Document 02/09/25 17:40 LLB No Response 02/09/25 18:08 LLB 02/09/25 17:40 Lab Assessment GBS Status negative GBS Additional Criteria Less than 37 Weeks In Pre- Term Labor Or PPROM Is Patient Allergic to Penicillin? No Treatment Required OK Are Labs Available Yes Maternal Blood Type O Maternal RH Factor Positive Evaluate Maternal Rubella Immune Status Immune Hepatitis B Surface Antigen Negative Maternal HIV Status Negative Maternal Syphillis (RPR) Status Negative PFSH PFS Medical History (Updated 02/10/25 @ 20:37 by Char Landry MD) Complete placenta previa nos or without hemorrhage, unspecified trimester ?O44.00 - Complete placenta previa NOS or without hemorrhage, unspecified trimester (ICD-10) 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 - Other and unspecified doubling of uterus (ICD-10) Surgical History Status post hysteroscopic resection of uterine septum ?Z98.891 - History of uterine scar from previous surgery (ICD-10) History of tonsillectomy and adenoidectomy ?Z90.89 - Acquired absence of other organs (ICD-10) History of hysteroscopy ?Z98.890 - Other specified postprocedural states (ICD-10) Family History Maternal Grandfather Prostate cancer Grandmother Diabetes Brother Congenital spinal malformation Mother Addiction Social History Narrative: SOCIAL Education: some college 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, plans to start at [employer] when they hire 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 Lives with: partner and her brother Pets: cat and dog Abuse: Denies past Special Diet: Denies Ok with a blood transfusion: yes Culture or episcopalian beliefs: denies RISK FACTORS Exercise Times/wk: walks occasionally Depression/Anxiety: both, hx therapy but not currently d/t cost, on Sertraline BROOKE: 5 PHQ 9: 4 Seat Belt Use: Routinely Smoking: Denies present, stopped vaping with transfer in June, only occasional use before then Alcohol/day: Denies while Caffeine: 1-2 pops a day Drug Use: Denies present THC in the past, last time 6+ months ago Chicken Pox: unsure if immunized MRSA: Denies What is your current living situation?: I presently have a place to live Problems where you live: no known problems In the past 12 months, utilities in danger of being shut off: no In past 12 months, lack of transportation kept you from medical appts, meetings, work, or getting things needed for daily living: no In the past 12 mos, have been you worried that your food would run out before you had money to buy more?: never true In the past 12 mos, the food you bought just didn't last and you didn't have money to buy more?: never true Smoking Status: Never smoker Do you use any of these nicotine containing products: Vaping Products How often do you have a drink containing alcohol: never AUDIT-C Alcohol total score: 0 Non-prescribed substance use: denies use How often does anyone, including family, friends and others, physically hurt you: never How often does anyone, including family, friends and others, insult or talk down to you: never How often does anyone, including family, friends and others, threaten you with harm: never How often does anyone, including family, friends and others, scream or curse at you: never Meds Home Medications and Allergies Home Medications ?Medication ?Instructions ?Recorded ?Confirmed ?Type metoclopramide HCl 10 mg tablet 10 mg PO Q6H PRN nausea/vomiting 09/15/24 02/09/25 History albuterol sulfate 90 mcg/actuation 2 puff PO Q4-6H PRN for wheezing 09/20/24 02/09/25 Rx aerosol inhaler #8.5 grams aspirin 81 mg chewable tablet 81 mg PO QDAY 09/30/24 02/09/25 History omeprazole 20 mg capsule,delayed 20 mg PO QDAY #120 caps 10/28/24 02/09/25 Rx release ondansetron HCl 4 mg tablet 4 mg PO Q6H #30 tabs 10/28/24 02/09/25 Rx vit no.95-ferrous 1 tab PO DAILY 12/02/24 02/09/25 History fumarate 28 mg-folic acid 800 mcg tablet () Blood Glucose Meter #1 ea 12/28/24 02/09/25 Rx Test Strips #100 ea 12/28/24 02/09/25 Rx lancets #100 ea 12/28/24 02/09/25 Rx sertraline 25 mg tablet 25 mg PO QDAY #90 tabs 01/07/25 02/09/25 Rx Allergies Allergy/AdvReac Type Severity Reaction Status Date / Time No Known Drug Allergies Allergy Verified 02/09/25 18:38 OB - H&P: Exam Physical Exam: Vital signs: Temp Pulse Resp BP Pulse Ox 98.2 F 77 16 154/93 H 94 02/11/25 07:22 02/11/25 08:09 02/11/25 07:22 02/11/25 08:09 02/10/25 17:39 OB - Results Labs Labs: Short CBC 02/10/25 02/11/25 Range/Units 21:06 03:35 WBC 13.14 H 15.45 H (4.50-11.00) K/uL Hgb 11.0 L 10.5 L (12.0-16.0) gm/dL Hct 33.4 31.8 L (33.0-51.0) % Plt Count 301 277 (140-440) K/uL BMP 02/10/25 02/11/25 21:06 03:35 BUN 13 Creatinine 0.8 0.8 Liver Function 02/10/25 02/11/25 Range/Units 21:06 03:35 AST 48 H 51 H (12-35) U/L ALT 60 H 68 H (4-35) U/L OB - CN: A/P Assessment and Plan (1) Headache in : Status: Acute (2) IUGR (intrauterine growth restriction) affecting care of mother: Status: Acute (3) GDM, class A1: Status: Acute (4) Supervision of high risk in third trimester: Status: Acute (5) resulting from in-vitro fertilization: Status: Acute (6) UTI (urinary tract infection) in in third trimester: Status: Acute (7) Abnormal US: Problem details: Elevated umbilical artery dopplers dx 02/08/2025 Status: Acute (8) Severe preeclampsia: Status: Acute
[2025-02-11] MEDS: AZITHROMYCIN 500 MG in 0.9 % SODIUM CHLORIDE 250 ml 250 ML 255 MG IVPB (08:53)
[2025-02-11 09:04] LABS: Hematocrit* 33.2 % (33.0-51.0); Hemoglobin* 11.0 gm/dL (12.0-16.0); Mean Corpuscular HGB Conc 33 gm/dL (32-36); Mean Corpuscular Hemoglobin 30 pg (26-34); Mean Corpuscular Volume 90 fL (80-100); Red Blood Count* 3.69 m/uL (4.00-5.20); White Blood Count* 14.47 K/uL (4.50-11.00)
[2025-02-11 09:07] LABS: Slide Review Reflex No
[2025-02-11 09:16] LABS: Alanine Aminotransferase* 70 U/L (4-35); Aspartate Amino Transferase* 54 U/L (12-35); Blood Urea Nitrogen* 11 mg/dL (5-24); Creatinine* 0.8 mg/dL (0.5-1.5); Est. Creatinine Clearance* 94.21; Estimated Glomerular Filt Rate 103 ml/min
[2025-02-11] MEDS: CEFAZOLIN 2 GM INJ IVP (09:20)
--- NOTE | 2025-02-11 10:33 | PM.OBPRCCS ---
Procedure Time Seen by Provider: 10:33 Date of procedure: 02/11/25 Procedure Done: Global Will [facility] bill your pro fee for this procedure?: Yes Procedure Description: DELIVERY BY SECTION Date of Service: 02/11/25 Delivery time: 938 Summary: Admitted for induction at 36.0 week for r/o severe preeclampsia and subsequent induction of labor, Primary Lower uterine transverse section, Pfannenstiel, Closed with sutures, QBL 423 cc, No complications, Findings: Normal uterus - underdeveloped lower uterine segment, normal bilateral ovaries and tubes 8/9 Weight 2000 g. Primary Indication: 1. intolerance to labor remote from delivery 2. Preeclampsia with severe features, worsening transaminitis Procedures: Primary Lower uterine transverse section Specimens Removed: Placenta Surgeon: So Evans MD Anesthesia: Spinal and TAP Report: Prophylactic antibiotic, 2 g of Ancef and 500 mg of Azithromycin were given before patient was taken to OR. She also had magnesium sulfate infusing. After arrival to the operating room patient was placed in the supine position with left lateral tilt after administration of spinal anesthesia. Cervical exam performed by myself. SVE: 3/50/very ballotable, moderately soft, posterior She was prepped and draped in the usual sterile manner. Laparotomy A pfannenstiel incision was made through the anterior abdominal wall with #10 scalpel approximately 2 cm above the pubic symphysis. The incision was extended sharply with the #10 scalpel through the subcutaneous tissue to the level of fascia. The fascia was entered sharply with a #10 scalpel (Pfannenstiel) in the midline and extended in semi-elliptical fashion bluntly with digits. The rectus muscles were in the midline bluntly with digits. The peritoneum was then entered bluntly. The peritoneal incision was then extended superiorly and inferiorly under direct visualization with care being taken to avoid bladder and bowel. No adhesions noted. The peritoneal incision was enlarged bluntly by lateral traction from the surgeon's and volunteer assistant's hand. Vidal retractor was inserted into the abdomen. Delivery A bladder flap was not developed as it was low of the intended hysterotomy site. Under developed lower uterine segment noted. A low transverse hysterotomy was made then with #10 scalpel and extended laterally and cephalad with fingers in a low transverse fashion with Manu Sin technique with care being taken to avoid injury to the fetus. The amniotic cavity (membrane) was then entered with spontaneous rupture of membrane, and the amniotic fluid was noted to be clear, fetus was delivered cephalic. With delivery of the baby, no extension was noted. Placenta was delivered spontaneously with steady traction on cord and manual separation of placenta from uterine wall. Closure Uterine cavity was cleaned after placental delivery with lap sponge x 2. The hysterotomy was closed in two layers with stitches using 0 vicryl with continuous locking stitches and 0 monocryl in a continuous non locking manner. Three [id number]-bs-ujptak placed in the middle of the hysterotomy. Hemostasis was achieved as needed with electrocautery. The ovaries/tubes/uterine surface were evaluated. They were found as noted above. Patient continue to have a boggy uterus after administration of 40u of pitocin bolus. 10u of IM pitocin given intramuscularly into the uterus with great response in tone. Vidal retractor removed. Chaya applied and hemostasis was confirmed again. Fascia was closed with running stitches using 0 vicryl. Subcutaneous layer was irrigated. Hemostasis was checked for and found to be adequate. The subcutaneous layer was closed with running 2-0 Vicryl sutures. The skin was closed with 4-0 monocryl subcuticular sutures . The incision was cleaned, Exofin applied, and Mepilex dressing placed. The procedure considered terminate at this time. Intraoperative Complications: None QBL: 423 cc Uterotonics/hemostatic agents: 40u of pitocin IV bolus, 10u of pitocin IM, 1g of TXA Disposition: The patient tolerated the procedure well. She was recovered in Obstetric PACU for close monitoring in stable condition, with a contracted uterus and normal transvaginal bleeding. The infant was sent to mother?s bedside. A segment of the cord was obtained for umbilical cord gases. The placenta was sent to pathology for preeclampsia with severe features and growth restriction. Cord gases were overall reassuring ABG: pH 7.31, pCO2 47, HCO3 30, BE -2.7 VBG: pH 7.34, pCO2 42, HCO3 23, BE -2.4 Debrief with OR team performed and specimen reviewed at the conclusion of the procedure.
--- NOTE | 2025-02-11 11:27 | P.ANES_ITS ---
Anesthesia Charges Start Date/Time Anesthesia Start Date: 02/11/25 Anesthesia Start Time: 09:02 Stop Date/Time Anesthesia Stop Date: 02/11/25 Anesthesia Stop Time: 10:54 Summary Emergency: MANAGER OF INFORMATION Coding CPT Codes CPT Codes: ANESTH CS DELIVERY - 10472 ([id number]) P2 - PATIENT W/MILD SYST DISEASE, QZ - MANAGER OF INFORMATION SVC W/O SHOE DRESSER BY Additional Codes: Summary - Emergency: MANAGER OF INFORMATION ([id number])
--- NOTE | 2025-02-11 11:27 | W.ANESCHARGE ---
Anesthesia Charges Start Date/Time Anesthesia Start Date: 02/11/25 Anesthesia Start Time: 09:02 Stop Date/Time Anesthesia Stop Date: 02/11/25 Anesthesia Stop Time: 10:54 Summary Emergency: FISH BIN TENDER Coding CPT Codes CPT Codes: ANESTH CS DELIVERY - 91701 ([id number]) P2 - PATIENT W/MILD SYST DISEASE, QZ - FISH BIN TENDER SVC W/O HEALTH AND SAFETY TECH BY Additional Codes: Summary - Emergency: FISH BIN TENDER ([id number])
--- NOTE | 2025-02-11 11:30 | P.ANES_ITS ---
Anesthesia Charges Start Date/Time Anesthesia Start Date: 02/11/25 Anesthesia Start Time: 09:02 Stop Date/Time Anesthesia Stop Date: 02/11/25 Anesthesia Stop Time: 10:54 Summary Emergency: FOOD AND BEVERAGE ATTENDANT Coding CPT Codes CPT Codes: ANESTH CS DELIVERY - 52095 ([id number]) P2 - PATIENT W/MILD SYST DISEASE, QZ - FOOD AND BEVERAGE ATTENDANT SVC W/O FLYER REPAIRER BY Additional Codes: Summary - Emergency: FOOD AND BEVERAGE ATTENDANT ([id number])
--- NOTE | 2025-02-11 11:30 | W.ANESCHARGE ---
Anesthesia Charges Start Date/Time Anesthesia Start Date: 02/11/25 Anesthesia Start Time: 09:02 Stop Date/Time Anesthesia Stop Date: 02/11/25 Anesthesia Stop Time: 10:54 Summary Emergency: CASUALTY UNDERWRITER Coding CPT Codes CPT Codes: ANESTH CS DELIVERY - 10395 ([id number]) P2 - PATIENT W/MILD SYST DISEASE, QZ - CASUALTY UNDERWRITER SVC W/O TOOL SUPERVISOR BY Additional Codes: Summary - Emergency: CASUALTY UNDERWRITER ([id number])
--- NOTE | 2025-02-11 11:31 | W.PM.NB ---
Nerve Block Nerve Block Time Seen by Provider: 10:30 Date Seen: 02/11/25 Type of block requested by surgeon for post-operative analgesia: TAP Side: bilateral Time out performed: Yes Verification of patient name: Yes Verification of date of : Yes Site marking: site marked Name of person performing procedure: RPS Continuous monitoring Was continuous monitoring of O2 sat, B/P, cardiac monitor technician, recorded every 15 minutes?: Yes Procedure Checklist: sterile prep, needles and gloves Ultrasound guided. Images saved: Yes Medications given in 5ml increments after negative aspiration: Marcaine %: 0.25 mL: 30 and Exparel mL: 10 Patient tolerated procedure well: Yes Block Charges Block Charge (with Pro Fee): TAP Bilateral Use of Ultrasound Machine for Block: Yes- US Guidance/pain block
[2025-02-11] MEDS: MAGNESIUM Infusion 40 GM/1,000 ML IV.SOLN IVPB (14:07)
[2025-02-11 14:45] LABS: Hematocrit* 28.3 % (33.0-51.0); Hemoglobin* 9.3 gm/dL (12.0-16.0); Mean Corpuscular HGB Conc 33 gm/dL (32-36); Mean Corpuscular Hemoglobin 29 pg (26-34); Mean Corpuscular Volume 90 fL (80-100); Red Blood Count* 3.16 m/uL (4.00-5.20); White Blood Count* 17.77 K/uL (4.50-11.00)
[2025-02-11 14:49] LABS: Slide Review Reflex No
[2025-02-11 15:11] LABS: Alanine Aminotransferase* 62 U/L (4-35); Aspartate Amino Transferase* 51 U/L (12-35); Blood Urea Nitrogen* 9 mg/dL (5-24); Creatinine* 0.6 mg/dL (0.5-1.5); Est. Creatinine Clearance* 125.61; Estimated Glomerular Filt Rate 125 ml/min
[2025-02-11] MEDS: miSOPROStoL 800 MCG/4 TABLET PR (16:06)
[2025-02-11] MEDS: CARBOPROST TROMETHAMINE 250 MCG/ML INJ IM (18:42)
[2025-02-11] MEDS: LOPERAMIDE HCL 2 MG CAPSULE 4 MG PO (18:46)
[2025-02-11 18:51] LABS: Hematocrit* 25.1 % (33.0-51.0); Hemoglobin* 8.2 gm/dL (12.0-16.0); Immature Granulocytes Abs Auto 0.10 K/uL (0.00-0.30); Immature Granulocytes Pct Auto 0.4 %; Lymphocytes Absolute Auto 1.50 K/uL (0.90-2.90); Mean Corpuscular HGB Conc 33 gm/dL (32-36); Mean Corpuscular Hemoglobin 30 pg (26-34); Mean Corpuscular Volume 92 fL (80-100); RDW Coefficient of Variation % 13.2 % (11.5-15.5); Red Blood Count* 2.74 m/uL (4.00-5.20); Slide Review Reflex No; White Blood Count* 19.92 K/uL (4.50-11.00)
--- NOTE | 2025-02-11 19:14 | P.EN_ITS ---
Chart Event Note Date Seen: 02/11/25 Chart Event Note: Delayed documentation due to active clinical care. Notified by RN around 1600 that patient approximately 150 cc of small trickle over 1hr 15 minutes. No gushing or clots. Hgb was 9.3 gm/dL, down from 11.0 gm/dL pre-operatively Request 800 mcg of cytotec rectally. At that time RN also reported at BP 79/49 that was recheck and to be 106/68. Patient felt dizzy which resolved with juice. BG 111 I presented at bedside at bedside to do a fundal message. No bleeding noted at that time. A removed a small quarter size clot from the vaginal vault. HR 77, O2 sat 94. Urine output adequate at that time, 210 cc in the last hour. Aside from mild incision pain, Mora denies any abdominal pain. Abdomen soft and appropriately tender at incision site. Dressing clean, dry, intact. Uterine fundus firm and almost 4 cm below the umbilicus and deep intraabdominally. No more bleeding noted during my time at her bedside. Notified by RN at 1830 that Mora had one big gush of blood and now has slowed down to a persistent trickle. I requested stat CBC. I was in the ED so I was able to present bedside expeditiously to assess patient. When I presented at bedside, fundal message revealed firm uterus and slow trickle of blood vaginally. Per nursing report since her delivery to 1829, she had QBL of 360 cc until the most recent gush of blood. The most recent gush of blood resulted in a QBL of 315 cc. BSUS revealed endometrial strip of 2.15 cm but lower uterine segment looked more distended with blood clot. 0.25 mg of Hemabate was given IM. Patient does have a hx of mild asthma that is mostly seasonal allergies and she hasn't used her i nhaler since October. Risks and benefits discussed with patient but given her continued bleeding risks outweighs the benefit. I recommended we proceed to the OR for suction D&C due to the clots noted at the lower uterine segment and she is unable to tolerate a more invasive exam bedside. Her Hgb is returned at 8.2 gm/dL. 2u of pRBC ordered. VSS @ 1820 wnl (BP 132/86, HR 94, RR 16, and O2 sat 99%) I reviewed how this procedure is performed. She will receive general anesthesia. The cervix is dilated open. However, I do not think she will require dilation given that she was recently dilated to 3 cm. A plastic curette is advanced into the uterus and connected to a vacuum. The vacuum then pulls the products out of the uterus. All material removed from the uterus is sent to the lab for testin g. I will use ultrasound guidance to assist me in this procedure. Risks with a suction curettage include injury to cervix or uterus -. Infection in the uterus resulting in endometritis -. She will receive antibiotics in the IV in the operating room prior to the procedure to prevent infection. Chance of Asherman syndrome resulting in inability to conceive a in the future: 04/2499. Chance of anesthesia complications are extremely rare: Less than 1/100,000 especially with negative personal or family history of anesthesia issues. After reviewing risk, benefits and alternatives, patients desires to proceed with suction D&C. OR team notified. OR team in house and setting for another D&C but will go with Mora faye as it is more urgent. Total QBL prior to return to OR: 423 cc (at time of delivery) + 675 cc (during recovery) = 1098 cc.
[2025-02-11] MEDS: CEFAZOLIN 2 GM in 0.9 % SODIUM CHLORIDE Mini-bag 100 ML IVPB (19:50)
[2025-02-11 21:15] LABS: Hematocrit* 23.4 % (33.0-51.0); Mean Corpuscular HGB Conc 33 gm/dL (32-36); Mean Corpuscular Hemoglobin 30 pg (26-34); Mean Corpuscular Volume 90 fL (80-100); Red Blood Count* 2.61 m/uL (4.00-5.20); White Blood Count* 18.42 K/uL (4.50-11.00)
[2025-02-11 21:20] LABS: Hemoglobin* 7.8 gm/dL (12.0-16.0); Slide Review Reflex No
--- NOTE | 2025-02-11 21:25 | P.ANES_ITS ---
Anesthesia Charges Start Date/Time Anesthesia Start Date: 02/11/25 Anesthesia Start Time: 19:39 Stop Date/Time Anesthesia Stop Date: 02/11/25 Anesthesia Stop Time: 21:23 Summary Emergency: CYBER SECURITY MANAGER Coding CPT Codes CPT Codes: ANESTH VAGINAL PROCEDURES - 21183 ([id number]) P2 - PATIENT W/MILD SYST DISEASE, QZ - CYBER SECURITY MANAGER SVC W/O STORE PLANNER BY Additional Codes: Summary - Emergency: CYBER SECURITY MANAGER ([id number])
--- NOTE | 2025-02-11 21:25 | W.ANESCHARGE ---
Anesthesia Charges Start Date/Time Anesthesia Start Date: 02/11/25 Anesthesia Start Time: 19:39 Stop Date/Time Anesthesia Stop Date: 02/11/25 Anesthesia Stop Time: 21:23 Summary Emergency: WAREHOUSE ASSOCIATE DRIVER Coding CPT Codes CPT Codes: ANESTH VAGINAL PROCEDURES - 80515 ([id number]) P2 - PATIENT W/MILD SYST DISEASE, QZ - WAREHOUSE ASSOCIATE DRIVER SVC W/O COORDINATE MEASURING MACHINE OPERATOR BY Additional Codes: Summary - Emergency: WAREHOUSE ASSOCIATE DRIVER ([id number])
[2025-02-11 21:48] LABS: Alanine Aminotransferase* 55 U/L (4-35); Aspartate Amino Transferase* 51 U/L (12-35); Blood Urea Nitrogen* 9 mg/dL (5-24); Creatinine* 0.7 mg/dL (0.5-1.5); Est. Creatinine Clearance* 107.67; Estimated Glomerular Filt Rate 121 ml/min
[2025-02-11 22:02] LABS: INR 1.08 (0.91-1.10); Prothrombin Time 14.9 Seconds
[2025-02-11] MEDS: SERTRALINE 50 MG TABLET 25 MG PO (22:57)
--- NOTE | 2025-02-11 23:15 | W.PM.GYNPROC ---
Procedure Note Date of procedure: 02/11/25 Will [facility] bill your pro fee for this procedure?: Yes Procedure Description: EXAM UNDER ANESTHESIA AND CURETTAGE PREOPERATIVE DIAGNOSIS: 1. hemorrhage 2/2 lower uterine segment atony POSTOPERATIVE DIAGNOSIS: Same PROCEDURE: 1. EUA 2. Ultrasound guided suction curettage SURGEON: So Evans MD ANESTHESIA: General FINDINGS: 1. An anteverted uterus firm 4 cm below umbilicus. Large blood clot in lower uterine segment and in vaginal vault. No adnexal masses on EUA 2. Normal external genitalia, normal appearing dilated cervix FLUIDS: 900cc QUANTITATIVE BLOOD LOSS IN THE OR: 436 cc with removal of lower uterine segment blood clot, 45 cc from curetting. Total in the OR: 481 cc URINE OUTPUT: 150 cc COMPLICATIONS: None PREOP ANTIBIOTIC: 2g of Ancef UTEROTONICS: 40u of pitocin, 0.25 mg of Hemabate x 1, and 1g of TXA SPECIMEN: 1. Endometrial curetting INDICATIONS: Mora is a 29 yo , with diagnosed with hemorrhage from lower uterine segment atony. DESCRIPTION OF PROCEDURE: The patient was taken to the operating room where general anesthesia was administered. 1u of pRBC was hung in the OR. She was prepared and draped in normal sterile fashion in the dorsal lithotomy position in yellow fin stirrups, taking care to avoid lower extremity hyperextension, hyperflexion or compression. A surgical time-out was performed with the entire operative staff per protocol. Perioperative antibiotics were given and pneumoboots were placed and activated. She had a stanley catheter in place and it was draining appropriately. EUA revealed the above findings. On bimanual exam, I was able to remove a large clot from her lower uterine segment and vaginal vault. After removal of large clot, bleeding significantly improved but patient still had a slow trickle. A speculum was placed in the patient's vagina and a ring forcep was placed on the anterior lip of the cervix. The cervix was able to accommodate the 10-12 nepali suction curettage. I alternated between to the suction sizes to get adequate curetting. The suction curettage was then inserted under direct visualization and ultrasound guided visualization. The uterus was then gently suction curetted and rotated to clear the uterus of any material. I had minimal return with curettage. This was performed until a gritty texture was noted and the uterus was cleared of all remaining material. I had minimal return from curetting. QBL was 45 cc for this part of the procedure. There was minimal bleeding noted after the suction curettage was removed. Out of an abundance of caution and minimal uterotonic options on her, I attempted to insert a tamponade device. The Bakri was too large to fit into her uterus. I attempted to use of two Stanley catheters inserting the balloon to 30 mL each under ultrasound guidance but both stanley cath were exposed through her dilated cervix. Attempt was abandon given that patient had only scant bleeding for the last 45 minutes of the procedure. The ring was removed from the anterior lip of the cervix and excellent hemostasis was noted. All instruments were removed. Of note, patient did have a significant amount of diarrhea throughout the procedure. Anticipated side effects of Hemabate. Debrief performed per protocol and specimen reviewed. Specimen was sent to pathology. The patient tolerated the procedure well. Sponge, lap and needle counts were correct x 2. The patient was taken to the recovery room in stable condition.
[2025-02-12] VITALS (8 sets, daily range): BP systolic 107–149; BP diastolic 67–85; PULSE 80–95; RESP 16–18; TEMP 36.7–36.9; O2SAT 96–100
[2025-02-12 00:50] LABS: Hematocrit* 28.6 % (33.0-51.0); Hemoglobin* 9.6 gm/dL (12.0-16.0); Immature Granulocytes Pct Auto 0.4 %; Lymphocytes Absolute Auto 2.20 K/uL (0.90-2.90); Mean Corpuscular HGB Conc 34 gm/dL (32-36); Mean Corpuscular Hemoglobin 30 pg (26-34); Mean Corpuscular Volume 88 fL (80-100); RDW Coefficient of Variation % 13.9 % (11.5-15.5); Red Blood Count* 3.25 m/uL (4.00-5.20); White Blood Count* 18.40 K/uL (4.50-11.00)
[2025-02-12 01:06] LABS: Alanine Aminotransferase* 57 U/L (4-35); Aspartate Amino Transferase* 50 U/L (12-35); Blood Urea Nitrogen* 9 mg/dL (5-24); Creatinine* 0.8 mg/dL (0.5-1.5); Est. Creatinine Clearance* 94.21; Estimated Glomerular Filt Rate 103 ml/min
[2025-02-12 02:37] LABS: Immature Granulocytes Abs Auto 0.10 K/uL (0.00-0.30); Slide Review Reflex No
[2025-02-12] MEDS: ACETAMINOPHEN 500 MG TABLET 1000 MG PO ×2 (05:47→17:43)
[2025-02-12 07:30] LABS: Hematocrit* 24.2 % (33.0-51.0); Hemoglobin* 8.0 gm/dL (12.0-16.0); Mean Corpuscular HGB Conc 33 gm/dL (32-36); Mean Corpuscular Hemoglobin 29 pg (26-34); Mean Corpuscular Volume 88 fL (80-100); Red Blood Count* 2.75 m/uL (4.00-5.20); White Blood Count* 15.44 K/uL (4.50-11.00)
[2025-02-12 07:31] LABS: Slide Review Reflex No
[2025-02-12 07:32] LABS: Alanine Aminotransferase* 41 U/L (4-35); Aspartate Amino Transferase* 41 U/L (12-35); Blood Urea Nitrogen* 9 mg/dL (5-24); Creatinine* 0.8 mg/dL (0.5-1.5); Est. Creatinine Clearance* 94.21; Estimated Glomerular Filt Rate 103 ml/min
--- NOTE | 2025-02-12 11:10 | P.OBPN_ITS ---
OB - PN:Subj Subjective Date Seen: 02/12/25 Interval history: Mora is a 29 year old at 36.2 weeks gestation that was admitted to the Center on 02/09/25 for induction of labor due to preeclampsia with severe features and growth restriction with elevated dopplers. She had an uncomplicated delivery for intolerance to labor remote from delivery and worsening preeclampsia with severe features based on elevated transaminitis. Her recovery course was complicated by hemorrhage requiring an exam under anesthesia and ultrasound guidance suction curettage. Total QBL from her and hemorrhage: 1579 cc (423 during CD, 675 cc during recovery, 481 cc during curettage). She received 2u of pRBC and multiple uterotonic/hemastatic agents. She is s/p 24 hr of magnesium sulfate . Narrative: Overnight patient had no complaints. Her pain is well controlled on oral pain medications. She is tolerating a regular diet. She has passed flatus. She is not yet ambulating without difficulty. She is urinating with stanley. Patient denies chest pain, SOB, n/v, headache, RUQ pain, vision changes, dizziness. She had not bleeding overnight after her procedure. OB - PN: Obj Exam Physical Exam: Vital signs: Temp Pulse Resp BP Pulse Ox O2 Del Method 98.3 F 86 18 107/67 96 Room Air 02/12/25 08:00 02/12/25 08:00 02/12/25 08:00 02/12/25 08:00 02/12/25 08:00 02/12/25 08:00 Narrative: Physical exam: General: No acute distress Psych: Alert and oriented x4, full affect HEENT: Normocephalic, atraumatic. Bilateral conjunctival pallor Heart: Regular rate and rhythm, no murmur rub or gallop Lungs: Clear to auscultation bilaterally Abdomen: Normoactive bowel sounds, soft, no tenderness, rebound, or guarding Incision(s): Appropriately tender to palpation. Clean, dry, and intact. No erythema, induration, or abnormal discharge/breakdown Lower extremities: Trace bilateral lower extremity edema Pelvic exam: No blood on pad. Pad has not been change overnight. Fundal massage with no bleeding noted OB - PN: Obj Data Labs Labs: Laboratory Results - last 24 hr 02/10/25 02/10/25 02/11/25 06:20 21:06 14:36 WBC 17.77 H RBC 3.16 L Hgb 9.3 L Hct 28.3 L MCV 90 MCH 29 MCHC 33 RDW Coeff of Rolando Plt Count 271 Neut % (Auto) Lymph % (Auto) [place] % (Auto) Eos % (Auto) Baso % (Auto) Neut # (Auto) Lymph # (Auto) [place] # (Auto) Eos # (Auto) Baso # (Auto) Abs Immat Gran (auto) Imm/Tot Granulo (auto) INR APTT Fibrinogen BUN 9 Creatinine 0.6 Estimated Creat Clear 125.61 Estimated GFR 125 Magnesium 6.7 H* AST 51 H ALT 62 H RPR Screen Non Reactive Blood Type O Positive Antibody Screen NEGATIVE Crossmatch ([facility]) See Detail 02/11/25 02/11/25 02/11/25 18:47 21:09 21:23 WBC 19.92 H 18.42 H RBC 2.74 L 2.61 L Hgb 8.2 L 7.8 L* Hct 25.1 L 23.4 L MCV 92 90 MCH 30 30 MCHC 33 33 RDW Coeff of Rolando 13.2 Plt Count 292 234 Neut % (Auto) 88.0 H Lymph % (Auto) 7.7 L [place] % (Auto) 3.8 Eos % (Auto) 0.0 Baso % (Auto) 0.1 Neut # (Auto) 17.50 H Lymph # (Auto) 1.50 [place] # (Auto) 0.80 Eos # (Auto) 0.00 Baso # (Auto) 0.00 Abs Immat Gran (auto) 0.10 Imm/Tot Granulo (auto) 0.4 INR 1.08 APTT 26 Fibrinogen 333 BUN 9 Creatinine 0.7 Estimated Creat Clear 107.67 Estimated GFR 121 Magnesium 7.2 H* AST 51 H ALT 55 H RPR Screen Blood Type Antibody Screen Crossmatch ([facility]) 02/12/25 02/12/25 00:40 06:55 WBC 18.40 H 15.44 H RBC 3.25 L 2.75 L Hgb 9.6 L 8.0 L Hct 28.6 L 24.2 L MCV 88 88 MCH 30 29 MCHC 34 33 RDW Coeff of Rolando 13.9 Plt Count 238 208 Neut % (Auto) 81.8 H Lymph % (Auto) 12.0 L [place] % (Auto) 5.7 Eos % (Auto) 0.0 Baso % (Auto) 0.1 Neut # (Auto) 15.10 H Lymph # (Auto) 2.20 [place] # (Auto) 1.00 H Eos # (Auto) 0.00 Baso # (Auto) 0.00 Abs Immat Gran (auto) 0.10 Imm/Tot Granulo (auto) 0.4 INR APTT Fibrinogen BUN 9 9 Creatinine 0.8 0.8 Estimated Creat Clear 94.21 94.21 Estimated GFR 103 103 Magnesium 6.2 H* AST 50 H 41 H ALT 57 H 41 H RPR Screen Blood Type Antibody Screen Crossmatch ([facility]) OB - PN: A/P Delivery Assessment and Plan (1) Severe preeclampsia: Status: Acute Assessment and Plan: Pre-Eclampsia with severe features - Based on severe ranging blood pressures requiring IV antihypertensives - BPs overnight 100-120/60-70s - Symptoms: None - Magnesium: Status post 24 hours of magnesium sulfate for seizure prophylaxis - IV antihypertensives: Currently not indicated - PO antihypertensives: Nifedipine XL 30 mg QD - Pre-eclampsia labs on 02/12: Hgb 8.0 Plt 208 Cr 0.8 ALT 41 AST 41 - UOP: Excellent at 3.96 mL/kg per hour over the last 4 hours (2) hemorrhage: Status: Acute Assessment and Plan: - Total QBL 1579 cc - S/p 2u of pRBC - No bleeding noted this AM (3) Acute blood loss anemia: Status: Acute Assessment and Plan: - pre delivery hemoglobin 11 --> post delivery hgb 9.3 --> 8.2 --> 1u of pRBC --> 7.8 --> 2nd unit of pRBC --> 9.6 --> 8.0 this AM - Currently asymptomatic. - Low threshold for 3rd unit of pRBC if patient is having symptomatic anemia (4) GDM, class A1: Status: Acute Assessment and Plan: - 2hr gtt pp
[2025-02-12] MEDS: SERTRALINE 50 MG TABLET 25 MG PO (21:08)
[2025-02-12] MEDS: LANOLIN CREAM 1 APPLIC TOPICAL (21:22)
[2025-02-12] MEDS: IBUPROFEN 600 MG TABLET PO (23:22)
[2025-02-13] VITALS (8 sets, daily range): BP systolic 119–147; BP diastolic 68–91; PULSE 82–114; RESP 16–18; TEMP 35.9–37.2; O2SAT 97–98
[2025-02-13] MEDS: ACETAMINOPHEN 500 MG TABLET 1000 MG PO ×3 (02:30→20:13)
[2025-02-13] MEDS: IBUPROFEN 600 MG TABLET PO ×3 (06:30→23:39)
[2025-02-13 06:41] LABS: Hematocrit* 23.7 % (33.0-51.0); Mean Corpuscular HGB Conc 33 gm/dL (32-36); Mean Corpuscular Hemoglobin 29 pg (26-34); Mean Corpuscular Volume 91 fL (80-100); Red Blood Count* 2.62 m/uL (4.00-5.20); White Blood Count* 12.25 K/uL (4.50-11.00)
[2025-02-13 06:49] LABS: Hemoglobin* 7.7 gm/dL (12.0-16.0)
[2025-02-13 06:50] LABS: Slide Review Reflex No
[2025-02-13 08:30] LABS: Glucose 2 Hour 122 mg/dl (70-155)
[2025-02-13] MEDS: FERROUS SULFATE 325 MG TABLET PO (09:16)
[2025-02-13] MEDS: DOCUSATE SODIUM 100 MG CAPSULE PO (09:16)
--- NOTE | 2025-02-13 09:24 | P.OBPN_ITS ---
OB - PN:Subj Subjective Date Seen: 02/13/25 Interval history: Mora is a 29-year-old G1 now P 0-1-0-1 who is status post primary low- transverse delivery for indication of intolerance of labor on 02/11/2025 at 36 2/7 weeks after induction of labor for indication preeclampsia without severe features with testing indicating elevated SD ratio on 02/08/2025. She has subsequently diagnosed with severe features during her labor course by blood pressure criteria and is now status post 24 hours of magnesium sulfate infusion . QBL from was 423 mL. Thereafter, she experienced hemorrhage, bringing total QBL from and hemorrage to 1578 mL. She was treated with multiple uterotonics. She received 2 units of packed red cells and required a D&C to evacuate clot in lower uterine segment. . otherwise complicated by IUGR, GDM A1, IVF , history of resection of uterine septum, low-lying placenta that resolved, asthma, anxiety and depression. Blood pressures today have been 140s over 80s to 90s. Urine output since midnight is 950 mL. Hemoglobin is 7.7, down from 8.0 yesterday morning. She is not tachycardic. Her 2 hour glucose testing was normal today. Narrative: Today, on postoperative day 2, she has no complaints. She continues to work on her infant daughter. She denies any heavy bleeding. Pain is well managed, and she is moving around without difficulty. She is tolerating regular diet and has passed flatus. OB - PN: Obj Exam Physical Exam: Vital signs: Temp Pulse Resp BP Pulse Ox O2 Del Method 99.0 F 100 18 146/84 H 98 Room Air 02/13/25 07:56 02/13/25 07:56 02/13/25 07:56 02/13/25 08:12 02/13/25 07:56 02/13/25 07:56 Narrative: General: Pleasant, no acute distress Heart: Regular rate and rhythm, no murmur or gallop Lungs: Clear to auscultation bilaterally Abdomen: Soft, nontender, fundus well below umbilicus, incision clean, dry, and intact Lower extremities: 2+ edema to bilateral knees, no erythema OB - PN: Obj Data Labs Labs: Laboratory Results - last 24 hr 02/13/25 06:05 WBC 12.25 H RBC 2.62 L Hgb 7.7 L* Hct 23.7 L MCV 91 MCH 29 MCHC 33 Plt Count 226 Glucose Tolerance normal AST and ALT last checked at 6:55 a.m. on 02/12/2025. Each was 41, down from prior OB - PN: A/P Delivery Assessment and Plan (1) Severe preeclampsia: Status: Acute Assessment and Plan: Status post 24 hours of magnesium sulfate infusion. She did experience diuresis during that time. She has mildly elevated blood pressures despite nifedipine 30 mg ER q.h.s.. I have increased her dose to 30 mg ER q.a.m., 60 mg ER q.p.m.. I will follow her blood pressures throughout the day. Continue every 4 hour blood pressure checks. (2) hemorrhage: Status: Acute Assessment and Plan: Bleeding is now scant, but anemia continues. Hemoglobin down from 8-7.7 today, stable. She denies any symptoms of anemia. We will continue iron supplementation. (3) Acute blood loss anemia: Status: Acute (4) History of gestational diabetes: Status: Acute Assessment and Plan: GDM A1 this . 2 hour glucose tolerance test was normal today. (5) Status post primary low transverse section: Status: Acute Assessment and Plan: Appropriate course. Plan day: 2 Comments: Anticipate discharge tomorrow
[2025-02-13] MEDS: SERTRALINE 50 MG TABLET 25 MG PO (20:09)
[2025-02-13 23:47] LABS: Glucose Fasting Check 72 mg/dl (60-115)
[2025-02-14 04:10] VITALS: BP 134/87; PULSE 102; RESP 18; TEMP 36.8; O2SAT 100
[2025-02-14] MEDS: ACETAMINOPHEN 500 MG TABLET 1000 MG PO (04:13)
[2025-02-14 08:03] VITALS: BP 152/84; PULSE 89; TEMP 36.7; O2SAT 97
[2025-02-14] MEDS: IBUPROFEN 600 MG TABLET PO ×2 (08:19→13:59)
[2025-02-14] MEDS: DOCUSATE SODIUM 100 MG CAPSULE PO (08:19)
[2025-02-14] MEDS: LABETALOL HCL 100 MG TABLET 200 MG PO (08:36)
[2025-02-14] MEDS: SODIUM CHLORIDE 0.9 % (FLUSH) 10 ML SYRINGE IVF (08:36)
--- NOTE | 2025-02-14 08:52 | P.OBPN_ITS ---
OB - PN:Subj Subjective Date Seen: 02/14/25 Interval history: Mora is a 29-year-old G1 now P 0-1-0-1 who is status post primary low- transverse delivery for indication of intolerance of labor on 02/11/2025 at 36 2/7 weeks after induction of labor for indication preeclampsia without severe features with testing indicating elevated SD ratio on 02/08/2025. She has subsequently diagnosed with severe features during her labor course by blood pressure criteria and is now status post 24 hours of magnesium sulfate infusion . QBL from was 423 mL. Thereafter, she experienced hemorrhage, bringing total QBL from and hemorrhage to 1578 mL. She was treated with multiple uterotonics. She received 2 units of packed red cells and required a D&C to evacuate clot in lower uterine segment. otherwise complicated by IUGR, GDM A1, IVF , history of resection of uterine septum, low-lying placenta that resolved, asthma, anxiety and depression. Today, on postoperative day 3, she has no complaints. She did have a headache this morning, which she often gets withdrawal. This improved after drinking Coke. She denies any visual changes or upper quadrant pain. She is well. Her nifedipine was increased yesterday to 30 mg in a.m., 60 mg at at bedtime. During the day, she had intermittently elevated blood pressures in the 140s systolic over 90s diastolic. Then, this morning, she had a systolic of 152. This was despite the 60 mg dose the night before. OB - PN: Obj Exam Physical Exam: Vital signs: Temp Pulse Resp BP Pulse Ox O2 Del Method 98.1 F 89 18 152/84 H 97 Room Air 02/14/25 08:03 02/14/25 08:03 02/14/25 04:10 02/14/25 08:03 02/14/25 08:03 02/14/25 08:03 Narrative: General: Pleasant, no acute distress Heart: Regular rate and rhythm, no murmur or gallop Lungs: Clear to auscultation bilaterally Abdomen: Soft, nontender, fundus well below umbilicus, incision clean, dry, and intact Lower extremities: 3+ edema to bilateral shins, no erythema OB - PN: Obj Data Labs Labs: Laboratory Results - last 24 hr 02/13/25 06:05 Glucose Tolerance normal OB - PN: A/P Delivery Assessment and Plan (1) Severe preeclampsia: Status: Acute Assessment and Plan: Status post 24 hours of magnesium sulfate infusion. Still with significant hypertension , despite adjustments of antihypertensives; she has not required IV antihypertensives during her course. I will increase her nifedipine ER to 60 mg b.i.d.. In addition to this, I will add labetalol 200 mg b.i.d., to be taken staggered between the nifedipine doses. She will have 1 dose of 200 now, and repeat at 3:00 p.m.. If her blood pressures are maintained within safe ranges until that time, I will plan for discharge this afternoon. (2) hemorrhage: Status: Acute Assessment and Plan: Bleeding is now scant, but anemia continues. Hemoglobin down from 8-7.7 today, stable. She denies any symptoms of anemia. We will continue iron sup plementation. (3) Acute blood loss anemia: Status: Acute (4) History of gestational diabetes: Status: Acute Assessment and Plan: GDM A1 this . 2 hour glucose tolerance test was normal today. (5) Status post primary low transverse section: Status: Acute Assessment and Plan: Appropriate course. Plan day: 3 Comments: Anticipate discharge this afternoon.
[2025-02-14 10:51] VITALS: BP 133/84; PULSE 93
[2025-02-14 11:49] VITALS: BP 117/75
[2025-02-14 13:53] VITALS: BP 118/72; PULSE 97
--- NOTE | 2025-02-14 16:00 | PC.SOCIAL ---
Social work: Prior to discharge, met with pt regarding resources and support available at discharge. Pt shared that because baby was a little early, she and her had not been entirely ready, but that in the few days since , her had gotten everything ready for pt to return home with baby at discharge. Pt states she will have good support to care for baby and has no concerns regarding this. Shared information with pt on classes available in [place] where she lives and provided written information on these classes. Social work had received a referral to share information on WIC with pt. Pt denies interest in WIC stating she is over income for that program. Provided pt with a one page list of community resources and explained how some of these could be useful to her. Pt was appreciative of information provided and requested it be put in her discharge resource notebook. Also provided pt with social services counselor's information and invited her or her to contact social work after discharge if they had any questions or need for community resources. RN is aware of visit and information provided.
--- NOTE | 2025-03-15 10:32 | P.DS_ITS ---
DS: Providers Provider Date Seen: 02/14/25 Date of admission: 02/09/25 14:45 Primary care physician: So Evans MD Admitting Clinician: Selin David CNM Consults: 02/10/25 20:18 Consult to Physician [CONS] Routine Comment: Consulting Provider: Char Landry Has provider been notified: Yes 02/13/25 23:48 Consult to Manager Corporate Responsibility [CONS] Routine Comment: WIC consult Reason for Consult:: Social Service Consult Attending Physician on discharge: Teagan Boyd MD Date of Discharge: 03/15/25 DS: Diagnosis Discharge Diagnosis (1) Status post primary low transverse section: Status: Acute (2) History of gestational diabetes: Status: Acute (3) Acute blood loss anemia: Status: Acute (4) hemorrhage: Status: Acute (5) Severe preeclampsia: Status: Acute Exam Narrative: Exam Narrative: Normal; see inpatient exam from 02/14/2025 OB - DS: Summary Hospital Course Hospital Course: Mora is a 29-year-old G1 now P 0-1-0-1 who is status post primary low- transverse delivery for indication of intolerance of labor on 02/11/2025 at 36 2/7 weeks after induction of labor for indication preeclampsia without severe features with testing indicating elevated SD ratio on 02/08/2025. She has subsequently diagnosed with severe features during her labor course by blood pressure criteria. She received 24 hours of magnesium sulfate infusion . QBL from was 423 mL. Thereafter, she experienced hemorrhage, bringing total QBL from and hemorrhage to 1578 mL. She was treated with multiple uterotonics. She received 2 units of packed red cells and required a D&C to evacuate clot in lower uterine segment. She was also started on iron supplementation . otherwise complicated by IUGR, GDM A1, IVF , history of resection of uterine septum, low-lying placenta that resolved, asthma, anxiety and depression. She had a normal 2 hour glucose tolerance test during her inpatient course. She was discharged on postoperative day 3 on a regimen of nifedipine ER 60 mg b.i.d.. In addition to this, she was started on labetalol 200 mg b.i.d.. Peripartum Data Procedures: Procedures Operation Date: 02/11/25 09:00 Actual Procedure Side Surgeon p Primary Section So Evans MD Operation Date: 02/11/25 19:45 Actual Procedure Side Surgeon p Exam Under Anesthesia; Suction Dilation and Curettage So Evans MD Infant Gender: Female Time Spent with Patient Time attestation: Total time spent providing and/or coordinating discharge services: Discharge Plan Discharge Disposition: Home, Self-Care Date of Admission: 02/09/25 14:45 Attending Provider on Discharge: Teagan Boyd Consulting Providers: Char Landry; Siomara Fan; So Evans; Teagan Boyd Primary Care Provider: So Evans Condition: Stable Anticipated Discharge Date/Time: 02/14/25 15:30 Discharge Medications: New acetaminophen 500 mg Tablet 1,000 mg PO Q6H PRN (Reason: Pain) Qty: 0 0RF docusate sodium 100 mg Capsule 100 mg PO DAILY Qty: 0 0RF ibuprofen 600 mg Tablet 600 mg PO Q6H PRN (Reason: Pain) Qty: 0 0RF Lanolin (HPA) 100 % Cream 1 applic topical Q1H PRNQty: 0 0RF Continued aspirin 81 mg tablet,chewable 81 mg PO QDAY sertraline 25 mg tablet 25 mg PO QDAY Qty: 90 2RF albuterol sulfate 90 mcg/actuation HFA aerosol inhaler 2 puff PO Q4-6H PRN (Reason: for wheezing) Qty: 8.5 0RF (DME) Test Strips Misc See Rx Instructions .MEDSUPPLY Qty: 100 3RF Rx Instructions: Test blood sugar 4 times daily. Fasting blood sugar every am, test blood sugar 2 hours post meals. (DME) lancets Misc See Rx Instructions .MEDSUPPLY Qty: 100 3RF Rx Instructions: Test blood sugar 4 times daily. (DME) Blood Glucose Meter Misc See Rx Instructions .MEDSUPPLY Qty: 1 0RF Rx Instructions: As directed Discontinued ondansetron HCl 4 mg tablet 4 mg PO Q6H Qty: 30 2RF No Action nifedipine 30 mg tablet extended release 60 mg PO BID Qty: 60 0RF labetalol 100 mg tablet 200 mg PO BID Qty: 60 0RF Discharge Orders: Discharge Order (Routine); Ordered 02/14/25 Ordered By: Teagan Boyd Patient Education: Bupivacaine Liposome (By injection), Deep Sedation (DC), OB High Blood Pressure DC, OB Over the Counter Medication Information, OB /Breast Feeding Additional Instructions: Follow up Thursday for BP check in clinic. Follow up 2 and 6 weeks in clinic. Call with BPs 150s / 100s or greater. Activity Detail: * Do not lift greater than 20 lb for 6 weeks. * Do not drive while you are taking narcotic pain medicines. * Do not submerge your incision beneath water until it has healed. * Do not put anything in your vagina for 6 weeks. Discharge Diet: Regular Follow Up Appointments: [facility] [Provider Group] So Evans MD [Primary Care Provider, [employer]] Forms: DNS:Net Info Instructions
== END 2025-02-14 15:44 | disposition home or self-care (01) | DRG 787 ==
LOC: OB OUT 14:49 → OB 14:49
PROVIDERS: Advanced Practice Midwife; Obstetrics & Gynecology; Admitting Provider Advanced Practice Midwife; PCP Obstetrics & Gynecology; Visit Provider Obstetrics & Gynecology
PROC: 10D00Z1 Extraction of Products of Conception, Low, Open Approach (ICD-10-PCS; CPT 59514; principal; 2025-02-11 09:00)
DX: O14.04 Mild to moderate pre-eclampsia, complicating childbirth (principal); D62 Acute posthemorrhagic anemia; O14.14 Severe pre-eclampsia complicating childbirth; O76 Abnormality in fetal heart rate and rhythm complicating labor and delivery; O72.1 Other immediate postpartum hemorrhage; O90.81 Anemia of the puerperium; O36.5930 Maternal care for other known or suspected poor fetal growth, third trimester, not applicable or unspecified; G89.18 Other acute postprocedural pain; O99.344 Other mental disorders complicating childbirth; F41.9 Anxiety disorder, unspecified; F32.A Depression, unspecified; Z37.0 Single live birth; Z3A.36 36 weeks gestation of pregnancy
CPT/HCPCS: 00940; 01961; 36415; 36430; 59200; 64488; 76815; 76942; 81001; 81003; 82565; 82570; 82947; 82950; 82962; 83735; 84112; 84156; 84450; 84460; 84520; 85018; 85025; 85027; 85384; 85610; 85730; 86592; 86850; 86900; 86901; 86922; 87081; 87086; 87653; 99140; A4314; A9270; J0330; J0456; J0665; J0666; J0690; J0702; J1100; J1885; J2250; J2270; J2371; J2405; J2590; J2704; J2765; J3010; J3475; J7050; J7120; P9016

== ENCOUNTER 2025-02-22 13:05 | Outpatient (CLI) | payer OTHER, SELFPAY ==
--- NOTE | 2025-02-22 14:49 | W.PM.LAC.MC ---
Consult Note - Mom Date of Visit Date of visit: 02/22/25 Reason for consultation: Assistance Needed Visit Code: Visit Patient's Information Phone number: [phone] : 1 Para: 1 Allergies No Known Drug Allergies Allergy (Verified 02/16/25 12:46) Mother's Medical History: Medical History (Updated 02/15/25 @ 00:01 by Background [place]) Hyperemesis of ?O21.0 - Mild hyperemesis gravidarum (ICD-10) Nausea and vomiting during ?O21.9 - Vomiting of , unspecified (ICD-10) resulting from in-vitro fertilization ?O09.819 - Supervision of resulting from assisted reproductive technology, unspecified trimester (ICD-10) Abnormal US ?O28.3 - Abnormal ultrasonic finding on screening of mother (ICD-10) Complete placenta previa nos or without hemorrhage, unspecified trimester ?O44.00 - Complete placenta previa NOS or without hemorrhage, unspecified trimester (ICD-10) 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 - Other and unspecified doubling of uterus (ICD-10) Work Plans: return to work in April Delivery Information Delivery type: Primary C/S; Labored Gestational Age: 36+2 Gestational Weight For Age: SGA Weight: 2 kg Discharge Weight: 1.875 kg Percentage weight loss: 6.3 Baby's Information Baby's Age at Visit: 11 days, now 37+6 CGA Baby's Provider or Clinic: [facility] Jaundice: No Past Experience Past Experience: No Current Frequency of Day Feedings: q3 hrs day and night, needs waking for feedings Both Breasts: Yes (sometimes) Suck: ok Latch: with shield Length of Time: 20-30 min sometimes just one side Goals: 1 year Pumping Pumping: Yes Quantity Pumped: 5-8 oz Supplementing EBM Supplement: Yes Formula Supplement: No Baby Elimination Number of Wet Diapers a Day: ea feeding Number of BM a Day: lots of poops, stopped countine Breast/Nipple Condition Breast Information: Breasts are symmetrical with rounded lower quadrants, intramammary distance is less than 1.5 inches. No erythema. Nipples are supple, everted prior to feeding. Breast Shape: Round Engorgement: No Maternal Nipple Condition - Left: Short Maternal Nipple Condition - Right: Short Sore Nipples: No Baby Assessment Skin: Normal Tongue/frenulum: Normal/elastic Palate: Average Lips: Relaxed and Symmetrical Jaw Alignment: Symmetrical Mucosa: [place], moist Onsite Observation Pre-Feed weight: 1.984 kg Post-Feed weight: 1.99 kg Milk Transferred (mL): 6 Position: Cross cradle (on LEFT) and Football (on RIGHT) Attachment/latch-on achieved: With difficulty, With nipple shield and Not achieved Suck pattern: Latched, but no sucking, audible swallows Swallow: Occasionally Behavior following feed: Alert, fussy Pre-Nursing Left Nipple: Within Normal Limits Pre-Nursing Right Nipple: Within Normal Limits Assessments/Interventions Assessments/Interventions: Babe latched? to mom's LEFT breast, latched with shield but would not engage in nutritive suckling; attempted on and off for about 10 minutes without success Babe then latched to mom's RIGHT breast, latched about the same without any nutritive suckling; mom would pull baby off and try to relatch without success. Tried breast compression to engage baby without success. Transferred 6 ml of milk; when away from mom's breast, babe was quite upset Mom then offered baby a bottle of 2 oz EBM and baby took this down quite readily in about 12 minutes via paced bottle feeding using Evenflo Wide neck bottle Education provided: Early feeding cues to maximize timing of latching, Asymmetric latch technique for wide/deep latch to increase milk, Transfer for baby and increase comfort for mom, Supply/demand nature of milk supply, Need for frequent stimulation/milk removal, Use of nipple shield (offered 16mm shield, mom reports increased comfort), Pumping for milk management and Milk collection, storage Feeding Plan: Continue feeding every 3 hours Offer both breasts ea feeding; no more than 15 minutes ea side, only 10 if baby getting sleepy Offer baby bottle feeding after even if seems sleepy given weight gain of 44g in 5 days Start with 15 ml and give more if baby finishes bottle Discussed need to minimize baby getting too tired for feeding if staying on one breast for 30 minutes but not transferring milk well Mom to offer baby breast without shield once a day; asymmetric latch reviewed to help get baby latched wide and deep Mom to continue pumping for fortified bottles and to protect milk supply until baby more able to do the work of this. Follow-Up Suggested follow up: Appointment as needed (recom appt in 2-3 weeks to reassess milk transfer as baby nears due date) Time Spent Time spent with patient (min): 90 Meds Home Medications and Allergies Home Medications ?Medication ?Instructions ?Recorded ?Confirmed ?Type metoclopramide HCl 10 mg tablet 10 mg PO Q6H PRN nausea/vomiting 09/15/24 02/16/25 History albuterol sulfate 90 mcg/actuation 2 puff PO Q4-6H PRN for wheezing 09/20/24 02/16/25 Rx aerosol inhaler #8.5 grams aspirin 81 mg chewable tablet 81 mg PO QDAY 09/30/24 02/16/25 History vit no.95-ferrous 1 tab PO DAILY 12/02/24 02/16/25 History fumarate 28 mg-folic acid 800 mcg tablet () Blood Glucose Meter #1 ea 12/28/24 02/16/25 Rx Test Strips #100 ea 12/28/24 02/16/25 Rx lancets #100 ea 12/28/24 02/16/25 Rx sertraline 25 mg tablet 25 mg PO QDAY #90 tabs 01/07/25 02/16/25 Rx acetaminophen 500 mg tablet 1,000 mg (2 x 500 mg) PO Q6H PRN 02/14/25 02/16/25 Rx Pain #0 tabs docusate sodium 100 mg capsule 100 mg PO DAILY #0 caps 02/14/25 02/16/25 Rx ferrous sulfate 325 mg (65 mg 325 mg PO Q48H #0 tabs 02/14/25 02/16/25 Rx iron) tablet ibuprofen 600 mg tablet 600 mg PO Q6H PRN Pain #0 tabs 02/14/25 02/16/25 Rx labetalol 100 mg tablet 200 mg (2 x 100 mg) PO BID #60 tabs 02/14/25 02/16/25 Rx modified lanolin 100 % topical 1 applic topical Q1H PRN #0 grams 02/14/25 02/16/25 Rx cream (Lanolin (HPA)) oxycodone 5 mg tablet 5 - 10 mg (1 - 2 x 5 mg) PO Q4H 02/14/25 02/16/25 Rx PRN Pain #20 tabs nifedipine 30 mg tablet,extended 60 mg (2 x 30 mg) PO BID #60 tabs 02/16/25 Rx release Allergies Allergy/AdvReac Type Severity Reaction Status Date / Time No Known Drug Allergies Allergy Verified 02/16/25 12:46
== END 2025-02-22 13:06 | disposition home or self-care (01) ==
LOC: OB LAC 13:05
PROVIDERS: Visit Provider Physician Assistant Medical
DX: Z39.1 Encounter for care and examination of lactating mother (principal)
CPT/HCPCS: G0463